=== PATIENT | female | born 1950 | race Caucasian/White ===

== ENCOUNTER 2016-08-24 21:21 | Inpatient (IN) | payer MEDICARE ==
[2016-08-24] MEDS ORDERED: Nicotine Inhaler* 10 MG AMP INH PRN (22:01)
[2016-08-24] MEDS ORDERED: Mouth Piece, Nicotine* 1 EACH CARTRIDGE INH ONE (23:00)
[2016-08-25] MEDS: Aspirin EC Low Dose* 81 MG TAB.EC PO SCH (09:16)
--- NOTE | 2016-08-25 13:36 | PN ---
Subjective - Subjective Service Type: 43255 Hosp care 15 min low complexity Subjective: Susan would not respond in any way to my request to speak with me, so I have no subjective report from her and no signs of mental status from behavior. Objective - Appearance Appearance: Healthy Appearing, Thin Framed Dysmorphic Features: No Hygiene: Normal Grooming: Fairly Well Kept - Behavior Psychomotor Activities: Abnormal-Decreased Exhibits Abnormal Movement: No - Attitude and Relatedness Attitude and Relatedness: Withdrawn Eye Contact: Poor - Speech Quality: Unpressured - as there is none - Mood Patient's Decription of Mood: wouldn't say - Affect Observed Affect: Unvariable Affect Consistent with: Dysphoria - Thought Process Patient's Thought Process: Impoverished - Level of Consciousness Level of Consciousness: Obtunded - or at least entirely nonresponsive - Impulse Control Impulse Control: Impaired - Insight and Judgement Insight and Judgement: Impaired - Group Participation Particating in Group Activities: No - Medication Management Medication Management Adherence: No Assessment - Assessment Merits Inpatient Hospitalization: For Immediate Safety, For Stabilization, Diagnosis Determination, To Initiate Treatment, For Ongoing Evaluation, For Discharge Planning, Pending Safe DC Plan Inpatient DSM-IV Dx: Other specified depressive and psychotic disorders. Clinical Impression: Ms. 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 We will be attempting to address again her episodes of catatonia. We will be attempting to elicit from her cooperation with gathering further information to ensure her safety prior to discharge. At the very least, we are hopeful that we will have sufficient observation on the unit of her functioning to indicate safety for discharge. Otherwise, we may need to consider long-term care to ensure her safety. As she is not even responding to request to be interviewed, much less signing HIPAA releases, we remain stymied in gathering either subjective report or collateral for determination of her safety for discharge. She will therefore remain admitted on 9.39 status pending adequate information for assessment as safe for discharge. Plan - Plan Treatment Plan: Name: SUSAN MEDRANO Birthdate: 1950 [id number] Gather collateral as soon as she permits. Monitor MS and safety. Offer ativan toward remission of catatonic presentation. Dispo per collateral and subjective report, would likely benefit from referral to mental health clinic, but unlikely to agree to this. Medications: Current Medications Aspirin (Aspirin Ec Low Dose*) 81 mg PO DAILY [facility] Last Admin: 08/25/16 09:16 Dose: Not Given Nicotine (Nicotine Inhaler*) 10 mg INH Q2H PRN PRN Reason: CRAVING - Discharge Plan Discharge Plan: Outpatient Follow Up
[2016-08-25] MEDS ORDERED: LORazepam TAB(*) 0.5 MG PO PRN (13:38)
[2016-08-26] MEDS: Aspirin EC Low Dose* 81 MG TAB.EC PO SCH (08:57)
--- NOTE | 2016-08-26 13:36 | PN ---
Progress Note - Progress Note Note: S: The patient is a 66 y.o. single white female just transferred to the [facility] from the medical unit following medical clearance for unresponsive, withdrawn behavior. Nursing staff indicates that she continues to just lay in her bed with her eyes closed and has taken no PO solids or fluids since arrival. On exam the patient is lying supine in bed and is essentially unresponsive to either verbal or tactile stimuli. O: The patient is short, clearly under-nourished female lying flat in bed with her eyes closed and refusing or unable to open them. She is mute and does not answer questions related to her mental status or any other subject. Vitals are stable in normal ranges. 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 Consider order for treatment from a laminator as she does not appear able to function and isn't speaking in order to make decisions for her own care.
[2016-08-27] MEDS: Aspirin EC Low Dose* 81 MG TAB.EC PO SCH (09:31)
--- NOTE | 2016-08-27 13:26 | PN ---
Subjective - Subjective Service Type: [id number] Hosp care 15 min low complexity Subjective: Patient has yet to eat anything since admission to our unit on 08/24. She has managed to sip small amounts of water and they did get her to accept one dose of 0.5mg ativan last evening. For the most part, however, she lies unresponsively, supine in her bed, seemingly unable to respond to either verbal or tactile stimuli. On exam she just lays in bed with her eyes closed, not appearing to hear me or feel my nudges on her foot. Objective - Appearance Appearance: Thin Framed Dysmorphic Features: No Hygiene: Normal Grooming: Fairly Well Kept - Behavior Psychomotor Activities: Abnormal-Decreased Exhibits Abnormal Movement: No - Attitude and Relatedness Attitude and Relatedness: Withdrawn Eye Contact: Poor - The patient is mute and cannot respond to questions regarding her mental status Assessment - Assessment Merits Inpatient Hospitalization: For Immediate Safety, For Stabilization Inpatient DSM-IV Dx: Other specified depressive and psychotic disorders. Clinical Impression: 66 y.o. single white female with a history of depression as well as catatonia and poor self care admitted as a transfer from medicine due to extreme withdrawal and inability to manage ADLs. Plan - Plan Treatment Plan: Name: KEMI MEDRANO Birthdate: 1950 [id number] Will schedule Ativan 2mg PO BID and see if this reverses the catatonia. Patient must eat and drink. Continued Medication Management: Consider Medication Medications: Current Medications Aspirin (Aspirin Ec Low Dose*) 81 mg PO DAILY [facility] Last Admin: 08/27/16 09:31 Dose: Not Given Lorazepam (Ativan Tab(*)) 0.5 mg PO Q4H PRN PRN Reason: ANXIETY Last Admin: 08/26/16 16:20 Dose: 0.5 mg Nicotine (Nicotine Inhaler*) 10 mg INH Q2H PRN PRN Reason: CRAVING - Discharge Plan Discharge Plan: Inpatient Hospitalization
[2016-08-27] MEDS: LORazepam INJ* 2 MG/ML 1 ML VIAL IM SCH ×2 (14:21→19:45)
[2016-08-28] MEDS: LORazepam INJ* 2 MG/ML 1 ML VIAL IM SCH ×3 (09:50→22:14)
[2016-08-28] MEDS: Aspirin EC Low Dose* 81 MG TAB.EC PO SCH (09:55)
--- NOTE | 2016-08-28 16:01 | PN ---
Subjective - Subjective Service Type: 36803 Hosp care 15 min low complexity Subjective: Ms. Campbell was in bed, her head covered and reported that she was tired. Answered questions briefly and covered her face again. Late was found walking in the dinning room. Says she ate her lunch which I doubted and per staff report they saw her in the dinning room drinking water. They were not sure she really ate. They will keep an eye on her during the dinner. Objective - Appearance Appearance: Thin Framed Dysmorphic Features: No Hygiene: Mal-odorous Grooming: Disheveled - Behavior Psychomotor Activities: Abnormal-Decreased Exhibits Abnormal Movement: No - Attitude and Relatedness Attitude and Relatedness: Minimally Cooperative Eye Contact: Poor - Speech Quality: Unpressured Latencies: Long Quantity: Terse - Mood Patient's Decription of Mood: "Fine" - Affect Observed Affect: Depressed - Thought Process Patient's Thought Process: Coherent, Impoverished Thought Content: No Passive Wish, No Suicidal Planning, No Homicidal Ideation, No Paranoid Ideation - Sensorium Experiencing Hallucinations: No, Sensorium is Clear Type of Hallucinations: Visual: No, Auditory: No, Command: No - Level of Consciousness Level of Consciousness: Alert Orientation: Yes Intact, Yes Orientated to Time, Yes Orientated to Place, Yes Orientated to Person - Impulse Control Impulse Control: Intact - Insight and Judgement Insight and Judgement: Impaired - Group Participation Particating in Group Activities: No - Medication Management Medication Management Adherence: No Assessment - Assessment Merits Inpatient Hospitalization: For Immediate Safety, For Stabilization, Diagnosis Determination, For Ongoing Evaluation, Pending Safe DC Plan Inpatient DSM-IV Dx: Other specified depressive and psychotic disorders. Plan - Plan Treatment Plan: Name: KEMI MEDRANO Birthdate: 1950 [id number] Continued Medication Management: Continue Outpt Medication Medications: Current Medications Aspirin (Aspirin Ec Low Dose*) 81 mg PO DAILY [facility] Last Admin: 08/28/16 09:55 Dose: Not Given Lorazepam (Ativan Tab(*)) 0.5 mg PO Q4H PRN PRN Reason: ANXIETY Last Admin: 08/26/16 16:20 Dose: 0.5 mg Lorazepam (Ativan Inj*) 2 mg IM BID [facility] Last Admin: 08/28/16 09:50 Dose: 2 mg Nicotine (Nicotine Inhaler*) 10 mg INH Q2H PRN PRN Reason: CRAVING - Discharge Plan Discharge Plan: Outpatient Follow Up Outpatient Program: TBD
[2016-08-29] MEDS: Aspirin EC Low Dose* 81 MG TAB.EC PO SCH (10:07)
[2016-08-29] MEDS: LORazepam INJ* 2 MG/ML 1 ML VIAL IM SCH ×2 (10:08→20:47)
--- NOTE | 2016-08-29 14:48 | PN ---
Subjective - Subjective Service Type: [id number] Hosp care 15 min low complexity Subjective: Susan reports feeling safe and ready for discharge, but still has not offered contact with any of the family or friends she claims she has been in touch with. She feels her rights are being violated by our needing to ascertain her safety prior to discharge, given the unsafe circumstances leading to her admission. Also says she thinks staff from this unit came up to the medical floor and removed her IV and monitoring equipment before they brought her here. She seems to feel she required continued medical care, despite being medically cleared for discharge. Objective - Appearance Appearance: Thin Framed Dysmorphic Features: No Hygiene: Normal Grooming: Fairly Well Kept - Behavior Psychomotor Activities: Normal Exhibits Abnormal Movement: No - Attitude and Relatedness Attitude and Relatedness: Guarded Eye Contact: Fair - Speech Quality: Unpressured Latencies: Normal Quantity: Appropriate - Mood Patient's Decription of Mood: "My mood is going to stand up for myself" - Affect Observed Affect: Tense Affect Consistent with: Dysphoria - Thought Process Patient's Thought Process: Goal Directed - toward discharge, Disorganized - as regards most other matters, Impoverished Thought Content: No Passive Wish, No Suicidal Planning, No Homicidal Ideation, No Paranoid Ideation - Sensorium Experiencing Hallucinations: No, Sensorium is Clear Type of Hallucinations: Visual: No, Auditory: No, Command: No - Level of Consciousness Level of Consciousness: Alert Orientation: Yes Intact, Yes Orientated to Time, Yes Orientated to Place, Yes Orientated to Person - Impulse Control Impulse Control: Tenuous - Insight and Judgement Insight and Judgement: Impaired - Group Participation Particating in Group Activities: No Group Participation Comments: only attending non-focused groups, eg recreational therapy - Medication Management Medication Management Adherence: No Assessment - Assessment Merits Inpatient Hospitalization: For Immediate Safety, For Stabilization, To Initiate Treatment, For Ongoing Evaluation, Consolidate Improvements, For Discharge Planning Inpatient DSM-IV Dx: Other specified depressive and psychotic disorders. Clinical Impression: Ms. 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 We will be attempting to address again her episodes of catatonia. We will be attempting to elicit from her cooperation with gathering further information to ensure her safety prior to discharge. At the very least, we are hopeful that we will have sufficient observation on the unit of her functioning to indicate safety for discharge. Otherwise, we may need to consider long-term care to ensure her safety. As she is not even responding to request to be interviewed, much less signing HIPAA releases, we remain stymied in gathering either subjective report or collateral for determination of her safety for discharge. She will therefore remain admitted on 9 status pending adequate information for assessment as safe for discharge. 1.3.17 Progress with talking with us now, but still a ways to go toward working collaboratively toward discharge. Have explained to her that we will need to speak with collateral contacts to determine her safety for discharge against isolation and poor care for self indicated by chaotic wellness check that led to this admission. Plan - Plan Treatment Plan: Name: SUSAN MEDRANO Birthdate: 1950 [id number] Gather collateral as soon as she permits. Monitor MS and safety. Encourage med compliance (won't even take baby aspirin). Dispo per collateral and subjective report, would likely benefit from referral to mental health clinic, but unlikely to agree to this. Medications: Current Medications Aspirin (Aspirin Ec Low Dose*) 81 mg PO DAILY [facility] Last Admin: 08/29/16 10:07 Dose: Not Given Lorazepam (Ativan Tab(*)) 0.5 mg PO Q4H PRN PRN Reason: ANXIETY Last Admin: 08/26/16 16:20 Dose: 0.5 mg Lorazepam (Ativan Inj*) 2 mg IM BID [facility] Last Admin: 08/29/16 10:08 Dose: Not Given Nicotine (Nicotine Inhaler*) 10 mg INH Q2H PRN PRN Reason: CRAVING - Discharge Plan Discharge Plan: Outpatient Follow Up
[2016-08-30] MEDS: LORazepam INJ* 2 MG/ML 1 ML VIAL IM SCH ×2 (08:53→22:46)
[2016-08-30] MEDS: Aspirin EC Low Dose* 81 MG TAB.EC PO SCH (10:33)
--- NOTE | 2016-08-30 16:13 | PN ---
Subjective - Subjective Service Type: [id number] Hosp care 15 min low complexity Subjective: Susan continues to refuse to speak with me. She has been marginally functional , taking some meals, but generally not engaging in care in any meaningful way. She will not permit gaining adequate collateral report to determine her safety if discharged. Objective - Appearance Appearance: Well Developed/Nourished Dysmorphic Features: No Hygiene: Normal Grooming: Well Kept - Behavior Psychomotor Activities: Abnormal-Decreased - often unresponsive Exhibits Abnormal Movement: No - Attitude and Relatedness Attitude and Relatedness: Withdrawn Eye Contact: Poor - Speech Quality: Unpressured Latencies: Short Quantity: Terse - Mood Patient's Decription of Mood: would not say - Affect Observed Affect: Non-labile Affect Consistent with: Dysphoria - Thought Process Patient's Thought Process: Disorganized, Impoverished - Level of Consciousness Level of Consciousness: Obtunded - Impulse Control Impulse Control: Tenuous - Insight and Judgement Insight and Judgement: Impaired - Group Participation Particating in Group Activities: No - Medication Management Medication Management Adherence: No Assessment - Assessment Merits Inpatient Hospitalization: For Immediate Safety, For Stabilization, Diagnosis Determination, To Initiate Treatment, For Ongoing Evaluation, For Discharge Planning, Pending Safe DC Plan Inpatient DSM-IV Dx: Other specified depressive and psychotic disorders. Clinical Impression: Ms. 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 We will be attempting to address again her episodes of catatonia. We will be attempting to elicit from her cooperation with gathering further information to ensure her safety prior to discharge. At the very least, we are hopeful that we will have sufficient observation on the unit of her functioning to indicate safety for discharge. Otherwise, we may need to consider long-term care to ensure her safety. As she is not even responding to request to be interviewed, much less signing HIPAA releases, we remain stymied in gathering either subjective report or collateral for determination of her safety for discharge. She will therefore remain admitted on status pending adequate information for assessment as safe for discharge. 1.3.17 Progress with talking with us now, but still a ways to go toward working collaboratively toward discharge. Have explained to her that we will need to speak with collateral contacts to determine her safety for discharge against isolation and poor care for self indicated by chaotic wellness check that led to this admission. 1.4.17 Continues to refuse to engage in interview sufficiently to make safety assessment. Refusing meds, groups. Plan - Plan Treatment Plan: Name: SUSAN MEDRANO Birthdate: 1950 [id number] Gather collateral as soon as she permits. Monitor MS and safety. Encourage med compliance (won't even take baby aspirin). Dispo per collateral and subjective report, would likely benefit from referral to mental health clinic, but unlikely to agree to this. Filing for Treatment Over Objection, she has filed legal challenge to this admission. Continued care necessary to reduce high risk of imminent serious physical harm from inadequate self-care. Medications: Current Medications Aspirin (Aspirin Ec Low Dose*) 81 mg PO DAILY [facility] Last Admin: 08/30/16 10:33 Dose: Not Given Lorazepam (Ativan Tab(*)) 0.5 mg PO Q4H PRN PRN Reason: ANXIETY Last Admin: 08/26/16 16:20 Dose: 0.5 mg Lorazepam (Ativan Inj*) 2 mg IM BID [facility] Last Admin: 08/30/16 08:53 Dose: 2 mg Nicotine (Nicotine Inhaler*) 10 mg INH Q2H PRN PRN Reason: CRAVING - Discharge Plan Discharge Plan: Consider Longer Term Tx
[2016-08-31] MEDS: Aspirin EC Low Dose* 81 MG TAB.EC PO SCH (09:10)
[2016-08-31] MEDS: LORazepam INJ* 2 MG/ML 1 ML VIAL IM SCH ×2 (09:10→20:53)
[2016-08-31] MEDS: FLUoxetine CAP* 10 MG PO SCH (10:11)
[2016-08-31] MEDS: OLANzapine TAB*ODT* 10 MG TAB PO SCH (20:53)
[2016-09-01] MEDS: FLUoxetine CAP* 10 MG PO SCH (13:27)
[2016-09-01] MEDS: Aspirin EC Low Dose* 81 MG TAB.EC PO SCH (13:27)
[2016-09-01] MEDS: LORazepam INJ* 2 MG/ML 1 ML VIAL IM SCH ×2 (13:27→21:06)
[2016-09-01] MEDS ORDERED: LORazepam INJ* 2 MG/ML 1 ML VIAL IM SCH (14:14)
--- NOTE | 2016-09-01 16:13 | PN ---
Subjective - Subjective Service Type: [id number] Hosp care 15 min low complexity Subjective: Unresponsive to me today when I approached her around 3 pm. Objective - Appearance Appearance: Thin Framed Dysmorphic Features: No Hygiene: Normal Grooming: Disheveled - Behavior Psychomotor Activities: Abnormal-Decreased - if not catatonic Exhibits Abnormal Movement: No - Attitude and Relatedness Attitude and Relatedness: Withdrawn Eye Contact: Poor - in fact absent - Speech Quality: Unpressured - in fact none - Mood Patient's Decription of Mood: will not rouse to report - Affect Observed Affect: Unvariable - Thought Process Patient's Thought Process: Impoverished - Level of Consciousness Level of Consciousness: Obtunded - Insight and Judgement Insight and Judgement: Impaired - Group Participation Particating in Group Activities: No - Medication Management Medication Management Adherence: No Assessment - Assessment Merits Inpatient Hospitalization: For Immediate Safety, For Stabilization, To Initiate Treatment, For Ongoing Evaluation, For Discharge Planning, Pending Safe DC Plan Inpatient DSM-IV Dx: Other specified depressive and psychotic disorders. Clinical Impression: Ms. 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 We will be attempting to address again her episodes of catatonia. We will be attempting to elicit from her cooperation with gathering further information to ensure her safety prior to discharge. At the very least, we are hopeful that we will have sufficient observation on the unit of her functioning to indicate safety for discharge. Otherwise, we may need to consider long-term care to ensure her safety. As she is not even responding to request to be interviewed, much less signing HIPAA releases, we remain stymied in gathering either subjective report or collateral for determination of her safety for discharge. She will therefore remain admitted on status pending adequate information for assessment as safe for discharge. 1.3.17 Progress with talking with us now, but still a ways to go toward working collaboratively toward discharge. Have explained to her that we will need to speak with collateral contacts to determine her safety for discharge against isolation and poor care for self indicated by chaotic wellness check that led to this admission. ..17 Continues to refuse to engage in interview sufficiently to make safety assessment. Refusing meds, groups. ..17 Still refusing to permit contact with collateral, engage in useful discussion of circumstances leading to hospitalization or plan for discharge. Often entirely unresponsive, and so she was today as I tried to rouse her from bed for an interview. Plan - Plan Treatment Plan: Name: KEMI MEDRANO Birthdate: 1950 [id number] Gather collateral as soon as she permits. Monitor MS and safety. Encourage med compliance (won't even take baby aspirin). Dispo per collateral and subjective report, would likely benefit from referral to mental health clinic, but unlikely to agree to this. Filing for Treatment Over Objection, she has filed legal challenge to this admission. Continued care necessary to reduce high risk of imminent serious physical harm from inadequate self-care. Medications: Current Medications Aspirin (Aspirin Ec Low Dose*) 81 mg PO DAILY [facility] Last Admin: 09/01/16 13:27 Dose: Not Given Fluoxetine HCl (Prozac Cap*) 10 mg PO DAILY [facility] Last Admin: 09/01/16 13:27 Dose: Not Given Lorazepam (Ativan Tab(*)) 0.5 mg PO Q4H PRN PRN Reason: ANXIETY Last Admin: 08/26/16 16:20 Dose: 0.5 mg Lorazepam (Ativan Inj*) 2 mg IM BID [facility] Nicotine (Nicotine Inhaler*) 10 mg INH Q2H PRN PRN Reason: CRAVING Olanzapine (Zyprexa *Odt*) 10 mg PO BEDTIME [facility] Last Admin: 08/31/16 20:53 Dose: Not Given - Discharge Plan Discharge Plan: Outpatient Follow Up
[2016-09-01] MEDS: OLANzapine TAB*ODT* 10 MG TAB PO SCH (21:08)
[2016-09-02] MEDS: Aspirin EC Low Dose* 81 MG TAB.EC PO SCH (09:48)
[2016-09-02] MEDS: FLUoxetine CAP* 10 MG PO SCH (09:48)
[2016-09-02] MEDS: LORazepam INJ* 2 MG/ML 1 ML VIAL IM SCH ×2 (10:18→22:36)
[2016-09-02] MEDS: OLANzapine TAB*ODT* 10 MG TAB PO SCH (22:27)
[2016-09-03] MEDS: Aspirin EC Low Dose* 81 MG TAB.EC PO SCH (09:46)
[2016-09-03] MEDS: FLUoxetine CAP* 10 MG PO SCH (09:46)
[2016-09-03] MEDS: LORazepam INJ* 2 MG/ML 1 ML VIAL IM SCH ×2 (10:12→21:53)
[2016-09-03] MEDS: OLANzapine TAB*ODT* 10 MG TAB PO SCH (21:52)
[2016-09-04] MEDS: LORazepam INJ* 2 MG/ML 1 ML VIAL IM SCH ×2 (09:50→21:09)
[2016-09-04] MEDS: Aspirin EC Low Dose* 81 MG TAB.EC PO SCH (10:59)
[2016-09-04] MEDS: FLUoxetine CAP* 10 MG PO SCH (10:59)
--- NOTE | 2016-09-04 13:37 | PN ---
Subjective - Subjective Service Type: 64947 Hosp care 15 min low complexity Subjective: Again today Susan did not respond to my request for an interview, instead continued to lay supine on her bed. Objective - Appearance Appearance: Thin Framed Dysmorphic Features: No Hygiene: Normal Grooming: Fairly Well Kept - Behavior Psychomotor Activities: Abnormal-Decreased Exhibits Abnormal Movement: No - Attitude and Relatedness Attitude and Relatedness: Withdrawn Eye Contact: Poor - Speech Quality: Unpressured - Thought Process Patient's Thought Process: Disorganized - Insight and Judgement Insight and Judgement: Impaired - Group Participation Particating in Group Activities: Yes Group Participation Comments: but only a few, and not the more focused groups - Medication Management Medication Management Adherence: Partial Assessment - Assessment Merits Inpatient Hospitalization: For Immediate Safety, For Stabilization, To Initiate Treatment, For Ongoing Evaluation, For Discharge Planning, Pending Safe DC Plan Inpatient DSM-IV Dx: Other specified depressive and psychotic disorders. Clinical Impression: Ms. Medrano is a 66-year-old woman with a history of depression and catatonic presentations previously, who again on this occasion had been nonresponsive on a wellness check from the lay out maker's department and so came into the hospital, remained nonresponsive for the first 24 hours here and is still not offering information adequate to ascertain her safety, so we will admit her to the [address] [place] [address] [facility] for further assessment. We will be attempting to address again her episodes of catatonia. We will be attempting to elicit from her cooperation with gathering further information to ensure her safety prior to discharge. At the very least, we are hopeful that we will have sufficient observation on the unit of her functioning to indicate safety for discharge. Otherwise, we may need to consider long-term care to ensure her safety. As she is not even responding to request to be interviewed, much less signing HIPAA releases, we remain stymied in gathering either subjective report or collateral for determination of her safety for discharge. She will therefore remain admitted on 939 status pending adequate information for assessment as safe for discharge. 1.3.17 Progress with talking with us now, but still a ways to go toward working collaboratively toward discharge. Have explained to her that we will need to speak with collateral contacts to determine her safety for discharge against isolation and poor care for self indicated by chaotic wellness check that led to this admission. 1.4.17 Continues to refuse to engage in interview sufficiently to make safety assessment. Refusing meds, groups. 09.01.16 Still refusing to permit contact with collateral, engage in useful discussion of circumstances leading to hospitalization or plan for discharge. Often entirely unresponsive, and so she was today as I tried to rouse her from bed for an interview. 09.04.16 Again today, entirely unresponsive, so not allowing full assessment nor any form of collaboration toward safe discharge. Plan - Plan Treatment Plan: Name: SUSAN MEDRANO Birthdate: 1950 [id number] Gather collateral as soon as she permits. Monitor MS and safety. Encourage med compliance (now taking baby aspirin and fluoxetine, but refusing Zyprexa). Dispo per collateral and subjective report, would likely benefit from referral to mental health clinic, but unlikely to agree to this. Filing for Treatment Over Objection, she has filed legal challenge to this admission. Continued care necessary to reduce high risk of imminent serious physical harm from inadequate self-care. Medications: Current Medications Aspirin (Aspirin Ec Low Dose*) 81 mg PO DAILY [facility] Last Admin: 09/04/16 10:59 Dose: Not Given Fluoxetine HCl (Prozac Cap*) 10 mg PO DAILY [facility] Last Admin: 09/04/16 10:59 Dose: Not Given Lorazepam (Ativan Tab(*)) 0.5 mg PO Q4H PRN PRN Reason: ANXIETY Last Admin: 08/26/16 16:20 Dose: 0.5 mg Lorazepam (Ativan Inj*) 2 mg IM BID [facility] Last Admin: 09/04/16 09:50 Dose: 2 mg Nicotine (Nicotine Inhaler*) 10 mg INH Q2H PRN PRN Reason: CRAVING Olanzapine (Zyprexa *Odt*) 10 mg PO BEDTIME [facility] Last Admin: 09/03/16 21:52 Dose: Not Given - Discharge Plan Discharge Plan: Outpatient Follow Up
[2016-09-04] MEDS: OLANzapine TAB*ODT* 10 MG TAB PO SCH (21:09)
[2016-09-05] MEDS: Aspirin EC Low Dose* 81 MG TAB.EC PO SCH (09:17)
[2016-09-05] MEDS: FLUoxetine CAP* 10 MG PO SCH (09:17)
[2016-09-05] MEDS: LORazepam INJ* 2 MG/ML 1 ML VIAL IM SCH ×2 (10:45→20:19)
--- NOTE | 2016-09-05 13:47 | PN ---
MHU: Group Therapy Note - Service Type Service Type: [id number] Group Psychotherapy - Cognitive Behavioral Group Therapy ( CBT):Patient attended CBT programming this morning and presented with flat affect that did not vary with discussion. Although responsive to direct prompts to respond to questions, patient did not engage in spontaneous conversation.
[2016-09-05] MEDS: OLANzapine TAB*ODT* 10 MG TAB PO SCH (20:17)
[2016-09-06] MEDS: Aspirin EC Low Dose* 81 MG TAB.EC PO SCH (09:31)
[2016-09-06] MEDS: FLUoxetine CAP* 10 MG PO SCH (09:31)
[2016-09-06] MEDS: LORazepam INJ* 2 MG/ML 1 ML VIAL IM SCH ×2 (09:31→21:15)
--- NOTE | 2016-09-06 11:51 | PN ---
MHU: Group Therapy Note - Service Type Service Type: 02807 Group Psychotherapy - Cognitive Behavioral Group Therapy ( CBT):Patient was attentive and participatory in CBT programming this morning, and remained in good behavioral control. Patient expressed positive insights regarding relevant treatment interventions and goals.
--- NOTE | 2016-09-06 17:51 | PN ---
Subjective - Subjective Service Type: 96002 Hosp care 15 min low complexity Subjective: Spent 2 hours today with Susan in court. She was astonishingly lucid and verbal there as compared with behavior here. Senior Manufacturing Engineer recommended to her to allow us to gather collateral to assure her safety at discharge, not sure if she agreed to do this. T.O.O. was granted. Objective - Appearance Appearance: Thin Framed Dysmorphic Features: No Hygiene: Normal Grooming: Fairly Well Kept - Behavior Psychomotor Activities: Normal Exhibits Abnormal Movement: No - Attitude and Relatedness Attitude and Relatedness: Guarded Eye Contact: Fair - Speech Quality: Unpressured Latencies: Normal Quantity: Terse - Mood Patient's Decription of Mood: "Good" - Affect Observed Affect: Fair Affect Consistent with: Euthymia - Thought Process Patient's Thought Process: Coherent, Goal Directed Thought Content: No Passive Wish, No Suicidal Planning, No Homicidal Ideation, No Paranoid Ideation - Sensorium Experiencing Hallucinations: No, Sensorium is Clear Type of Hallucinations: Visual: No, Auditory: No, Command: No - Level of Consciousness Level of Consciousness: Alert Orientation: Yes Intact, Yes Orientated to Time, Yes Orientated to Place, Yes Orientated to Person - Impulse Control Impulse Control: Intact - Insight and Judgement Insight and Judgement: Poor - Group Participation Particating in Group Activities: Yes Group Participation Comments: some - Medication Management Medication Management Adherence: Yes Assessment - Assessment Merits Inpatient Hospitalization: For Stabilization, To Initiate Treatment, For Ongoing Evaluation, For Discharge Planning, Pending Safe DC Plan Inpatient DSM-IV Dx: Other specified depressive and psychotic disorders. Clinical Impression: Ms. Medrano is a 66-year-old woman with a history of depression and catatonic presentations previously, who again on this occasion had been nonresponsive on a wellness check from the convex grinder operator's department and so came into the hospital, remained nonresponsive for the first 24 hours here and is still not offering information adequate to ascertain her safety, so we will admit her to the [address] [place] [address] [facility] for further assessment. We will be attempting to address again her episodes of catatonia. We will be attempting to elicit from her cooperation with gathering further information to ensure her safety prior to discharge. At the very least, we are hopeful that we will have sufficient observation on the unit of her functioning to indicate safety for discharge. Otherwise, we may need to consider long-term care to ensure her safety. As she is not even responding to request to be interviewed, much less signing HIPAA releases, we remain stymied in gathering either subjective report or collateral for determination of her safety for discharge. She will therefore remain admitted on 39 status pending adequate information for assessment as safe for discharge. 1.3.17 Progress with talking with us now, but still a ways to go toward working collaboratively toward discharge. Have explained to her that we will need to speak with collateral contacts to determine her safety for discharge against isolation and poor care for self indicated by chaotic wellness check that led to this admission. 1.4.17 Continues to refuse to engage in interview sufficiently to make safety assessment. Refusing meds, groups. 1.6.17 Still refusing to permit contact with collateral, engage in useful discussion of circumstances leading to hospitalization or plan for discharge. Often entirely unresponsive, and so she was today as I tried to rouse her from bed for an interview. 19.17 Again today, entirely unresponsive, so not allowing full assessment nor any form of collaboration toward safe discharge. 09.06.17 T.O.O. granted, challenge to 9.39 not granted. Remarkably lucid in court. Will start treatment tomorrow. Plan - Plan Treatment Plan: Name: SUSAN MEDRANO Birthdate: 1950 [id number] Gather collateral as soon as she permits. Monitor MS and safety. Encourage med compliance (refused all today). Dispo per collateral and subjective report , would likely benefit from referral to mental health clinic, but unlikely to agree to this. Treatment Over Objection and legal challenge to this admission decided in favor of [facility]. Continued care necessary to reduce high risk of imminent serious physical harm from inadequate self-care. Discharge will be when we can confirm safety. Continued Medication Management: Different Medication Medications: Current Medications Aspirin (Aspirin Ec Low Dose*) 81 mg PO DAILY [facility] Last Admin: 09/06/16 09:31 Dose: Not Given Fluoxetine HCl (Prozac Cap*) 10 mg PO DAILY [facility] Last Admin: 09/06/16 09:31 Dose: Not Given Lorazepam (Ativan Tab(*)) 0.5 mg PO Q4H PRN PRN Reason: ANXIETY Last Admin: 08/26/16 16:20 Dose: 0.5 mg Lorazepam (Ativan Inj*) 2 mg IM BID [facility] Last Admin: 09/06/16 09:31 Dose: Not Given Nicotine (Nicotine Inhaler*) 10 mg INH Q2H PRN PRN Reason: CRAVING Olanzapine (Zyprexa *Odt*) 10 mg PO BEDTIME [facility] Last Admin: 09/05/16 20:17 Dose: Not Given - Discharge Plan Discharge Plan: Outpatient Follow Up Outpatient Program: [facility]
[2016-09-06] MEDS: OLANzapine TAB*ODT* 10 MG TAB PO SCH (21:17)
[2016-09-07] MEDS: Aspirin EC Low Dose* 81 MG TAB.EC PO SCH (09:39)
[2016-09-07] MEDS: FLUoxetine CAP* 10 MG PO SCH (09:39)
[2016-09-07] MEDS: LORazepam INJ* 2 MG/ML 1 ML VIAL IM SCH (10:00)
--- NOTE | 2016-09-07 10:25 | PN ---
Subjective - Subjective Service Type: 09364 Hosp care 15 min low complexity Subjective: Today, for the first time, Susan sat with me and had a cogent conversation about medications. She reports no ill effects from Zyprexa, and agrees to take it, Prozac and Ativan. She has no physical complaints. She does want to treat her illness with acupuncture and [place]ik herbal medications, but did not object to my advice to clear this with her outpatient psychiatrist once she begins working with one. She reports good mood and no active psychiatric symptoms. She confirmed to me that what she said in court about her episodes of unresponsiveness is true, that they are involuntary. She agrees that this could lead to dangerous situations. I did not ask her today why the big change in attitude, but I am curious about it, and suspect it has to do with a therapeutic effect of formal court confrontation with the truths of her situation. Objective - Appearance Appearance: Thin Framed Dysmorphic Features: No Hygiene: Normal Grooming: Well Kept - Behavior Psychomotor Activities: Normal Exhibits Abnormal Movement: No - Attitude and Relatedness Attitude and Relatedness: Cooperative Eye Contact: Good - Speech Quality: Unpressured Latencies: Normal Quantity: Appropriate - Mood Patient's Decription of Mood: "Good" - Affect Observed Affect: Fair Affect Consistent with: Euthymia - Thought Process Patient's Thought Process: Coherent, Goal Directed Thought Content: No Passive Wish, No Suicidal Planning, No Homicidal Ideation, No Paranoid Ideation - Sensorium Experiencing Hallucinations: No, Sensorium is Clear Type of Hallucinations: Visual: No, Auditory: No, Command: No - Level of Consciousness Level of Consciousness: Alert Orientation: Yes Intact, Yes Orientated to Time, Yes Orientated to Place, Yes Orientated to Person - Impulse Control Impulse Control: Intact - Insight and Judgement Insight and Judgement: Fair - Group Participation Particating in Group Activities: No - Medication Management Medication Management Adherence: Partial Assessment - Assessment Merits Inpatient Hospitalization: For Stabilization, To Initiate Treatment, For Ongoing Evaluation, For Discharge Planning, Pending Safe DC Plan Inpatient DSM-IV Dx: Other specified depressive and psychotic disorders. Clinical Impression: Ms. Medrano is a 66-year-old woman with a history of depression and catatonic presentations previously, who again on this occasion had been nonresponsive on a wellness check from the anthropological linguist's department and so came into the hospital, remained nonresponsive for the first 24 hours here and is still not offering information adequate to ascertain her safety, so we will admit her to the [address] [place] [address] [facility] for further assessment. We will be attempting to address again her episodes of catatonia. We will be attempting to elicit from her cooperation with gathering further information to ensure her safety prior to discharge. At the very least, we are hopeful that we will have sufficient observation on the unit of her functioning to indicate safety for discharge. Otherwise, we may need to consider long-term care to ensure her safety. As she is not even responding to request to be interviewed, much less signing HIPAA releases, we remain stymied in gathering either subjective report or collateral for determination of her safety for discharge. She will therefore remain admitted on status pending adequate information for assessment as safe for discharge. 1.3.17 Progress with talking with us now, but still a ways to go toward working collaboratively toward discharge. Have explained to her that we will need to speak with collateral contacts to determine her safety for discharge against isolation and poor care for self indicated by chaotic wellness check that led to this admission. 1.4.17 Continues to refuse to engage in interview sufficiently to make safety assessment. Refusing meds, groups. 1.6.17 Still refusing to permit contact with collateral, engage in useful discussion of circumstances leading to hospitalization or plan for discharge. Often entirely unresponsive, and so she was today as I tried to rouse her from bed for an interview. 17 Again today, entirely unresponsive, so not allowing full assessment nor any form of collaboration toward safe discharge. 09.06.17 T.O.O. granted, challenge to not granted. Remarkably lucid in court. Will start treatment tomorrow. 09.07.17 Today Susan is cooperative and collaborative and pleasant. She is med compliant with no complaints of side effects, the potentials for which we have reviewed, and she has agreed to take the PO meds that are ordered with knowledge and acceptance of potential side effects seeing likely benefits as outweighing risks. She has asked for Staff Pass and q30 checks and comfort room privileges. Added 40 mg atorvastatin after reviewing follow-up recommendations from medical admission with Bakari Denis: this had not been a d/ c med in Dr Freire's d/c summary, but Marzulla assessed her as needing this for her cardiac risk and lipid profile on review of the case with me today. Plan - Plan Treatment Plan: Name: SUSAN MEDRANO Birthdate: 1950 [id number] Gather collateral as soon as she permits. Monitor MS and safety. Encourage med compliance under T.O.O. (took all today). Dispo per collateral and subjective report, would likely benefit from referral to mental health clinic, has now tacitly agreed to this, will benefit from firming commitment during remaining inpatient stay. Continued care necessary to reduce high risk of imminent serious physical harm from inadequate self-care, but if current trends continue may be safe for discharge in a week or so. Discharge will be when we can confirm safety through sustained remission of catatonia, stable euthymic mood, organized thought and behavior, and commitment to adequate aftercare plan. Medications: Current Medications Aspirin (Aspirin Ec Low Dose*) 81 mg PO DAILY [facility] Last Admin: 09/07/16 09:39 Dose: 81 mg Fluoxetine HCl (Prozac Cap*) 10 mg PO DAILY [facility] Last Admin: 09/07/16 09:39 Dose: 10 mg Lorazepam (Ativan Tab(*)) 0.5 mg PO Q4H PRN PRN Reason: ANXIETY Last Admin: 08/26/16 16:20 Dose: 0.5 mg Lorazepam (Ativan Inj*) 2 mg IM BID [facility] Last Admin: 09/07/16 10:00 Dose: Not Given Nicotine (Nicotine Inhaler*) 10 mg INH Q2H PRN PRN Reason: CRAVING Olanzapine (Zyprexa *Odt*) 10 mg PO BEDTIME [facility] Last Admin: 09/06/16 21:17 Dose: 10 mg - Discharge Plan Discharge Plan: Outpatient Follow Up Outpatient Program: [facility]
[2016-09-07] MEDS ORDERED: LORazepam INJ* 2 MG/ML 1 ML VIAL IM PRN (10:29)
--- NOTE | 2016-09-07 11:55 | PN ---
MHU: Group Therapy Note - Service Type Service Type: [id number] Group Psychotherapy - Cognitive Behavioral Group Therapy ( CBT):Patient was attentive and participatory in CBT programming this morning, and remained in good behavioral control. Patient expressed positive insights regarding relevant treatment interventions and goals.
[2016-09-07] MEDS: Atorvastatin* 40 MG TAB PO SCH (20:34)
[2016-09-07] MEDS: LORazepam TAB(*) 0.5 MG PO SCH (20:34)
[2016-09-07] MEDS: OLANzapine TAB*ODT* 10 MG TAB PO SCH (20:34)
[2016-09-08] MEDS: FLUoxetine CAP* 10 MG PO SCH (09:21)
[2016-09-08] MEDS: Aspirin EC Low Dose* 81 MG TAB.EC PO SCH (09:21)
[2016-09-08] MEDS: LORazepam TAB(*) 0.5 MG PO SCH ×2 (09:21→20:47)
--- NOTE | 2016-09-08 16:04 | PN ---
Subjective - Subjective Service Type: 65952 Hosp care 15 min low complexity Subjective: Susan had no spontaneous comments but reported feeling better. Attributed it to the medication, which she said "is helping." Denied problems here but is eager to go home. Said she feels she is getting good care, even thought the process, and court, has been difficult. Objective - Appearance Appearance: Thin Framed Grooming: Fairly Well Kept - Behavior Psychomotor Activities: Abnormal-Decreased - Attitude and Relatedness Attitude and Relatedness: Superficially Cooperative Eye Contact: Good - Speech Quality: Unpressured Latencies: Normal Quantity: Terse - Mood Patient's Decription of Mood: "Okay" - Affect Observed Affect: Non-labile Affect Consistent with: Dysphoria - mild - Thought Process Patient's Thought Process: Coherent, Impoverished Thought Content: No Passive Wish, No Suicidal Planning, No Homicidal Ideation, No Paranoid Ideation - Sensorium Experiencing Hallucinations: No, Sensorium is Clear - Level of Consciousness Level of Consciousness: Alert - Impulse Control Impulse Control: Intact - Insight and Judgement Insight and Judgement: Fair Assessment - Assessment Merits Inpatient Hospitalization: To Initiate Treatment, For Ongoing Evaluation , Consolidate Improvements, For Discharge Planning Inpatient DSM-IV Dx: Other specified depressive and psychotic disorders. Clinical Impression: 66-year-old female with a history of depression and catatonia. She was transferred to psychiatry from the medical service, after being found with catatonia. She is stable in this setting, with improvement - is less overtly depressed and slowed down, brighter. Complication was her medication refusal, she is now under court order for medicines. Regimen is with Zyprexa, Prozac, Ativan. Given progress and ongoing symptoms, expect d/c next week. Plan - Plan Treatment Plan: Name: SUSAN MEDRANO Birthdate: 1950 [id number] Continued Medication Management: Start Medication Medications: Current Medications Aspirin (Aspirin Ec Low Dose*) 81 mg PO DAILY [facility] Last Admin: 09/08/16 09:21 Dose: 81 mg Atorvastatin Calcium (Lipitor*) 40 mg PO 2100 [facility] Last Admin: 09/07/16 20:34 Dose: 40 mg Fluoxetine HCl (Prozac Cap*) 10 mg PO DAILY [facility] Last Admin: 09/08/16 09:21 Dose: 10 mg Lorazepam (Ativan Tab(*)) 0.5 mg PO BID [facility] Last Admin: 09/08/16 09:21 Dose: 0.5 mg Lorazepam (Ativan Inj*) 2 mg IM BID PRN PRN Reason: catatonia Olanzapine (Zyprexa *Odt*) 10 mg PO BEDTIME [facility] Last Admin: 09/07/16 20:34 Dose: 10 mg - Discharge Plan Discharge Plan: Outpatient Follow Up
[2016-09-08] MEDS: Atorvastatin* 40 MG TAB PO SCH (20:47)
[2016-09-08] MEDS: OLANzapine TAB*ODT* 10 MG TAB PO SCH (20:47)
[2016-09-09] MEDS: LORazepam TAB(*) 0.5 MG PO SCH ×2 (09:36→20:09)
[2016-09-09] MEDS: Aspirin EC Low Dose* 81 MG TAB.EC PO SCH (09:36)
[2016-09-09] MEDS: FLUoxetine CAP* 10 MG PO SCH (09:36)
[2016-09-09] MEDS: Atorvastatin* 40 MG TAB PO SCH (20:08)
[2016-09-09] MEDS: OLANzapine TAB*ODT* 10 MG TAB PO SCH (20:10)
[2016-09-10] MEDS: LORazepam TAB(*) 0.5 MG PO SCH ×2 (08:57→20:07)
[2016-09-10] MEDS: Aspirin EC Low Dose* 81 MG TAB.EC PO SCH (08:57)
[2016-09-10] MEDS: FLUoxetine CAP* 10 MG PO SCH (08:57)
[2016-09-10] MEDS: Atorvastatin* 40 MG TAB PO SCH (20:07)
[2016-09-10] MEDS: OLANzapine TAB*ODT* 10 MG TAB PO SCH (20:07)
[2016-09-11] MEDS: LORazepam TAB(*) 0.5 MG PO SCH ×2 (08:27→19:38)
[2016-09-11] MEDS: Aspirin EC Low Dose* 81 MG TAB.EC PO SCH (08:27)
[2016-09-11] MEDS: FLUoxetine CAP* 10 MG PO SCH (08:27)
--- NOTE | 2016-09-11 08:47 | PN ---
Subjective - Subjective Service Type: 36805 Hosp care 15 min low complexity Subjective: Susan reported "doing fine," and said her mood was "good." She denied distress, conflicts, or side effects with medicines. She agrees she has made progress. Objective - Appearance Appearance: Thin Framed Hygiene: Normal Grooming: Well Kept - Behavior Psychomotor Activities: Normal - Attitude and Relatedness Attitude and Relatedness: Cooperative Eye Contact: Good - Speech Quality: Unpressured Latencies: Normal Quantity: Terse - Mood Patient's Decription of Mood: "Fine" - Affect Observed Affect: Constricted Affect Consistent with: Euthymia - Thought Process Patient's Thought Process: Impoverished Thought Content: No Passive Wish, No Suicidal Planning, No Homicidal Ideation, No Paranoid Ideation - Sensorium Experiencing Hallucinations: No, Sensorium is Clear - Level of Consciousness Level of Consciousness: Alert - Impulse Control Impulse Control: Intact - Insight and Judgement Insight and Judgement: Fair Assessment - Assessment Merits Inpatient Hospitalization: To Initiate Treatment, For Ongoing Evaluation , Consolidate Improvements Inpatient DSM-IV Dx: Other specified depressive and psychotic disorders. Clinical Impression: 66-year-old female with a history of depression and catatonia. She was transferred to psychiatry from the medical service, after being found with catatonia. She is stable in this setting, with ongoing improvement - is less overtly depressed or slowed down, and relatively brighter and more interactive. Complication was her medication refusal, she is now under court order for medicines. Regimen is with Zyprexa, Prozac, Ativan. Given progress and ongoing symptoms, expect d/c later this week. Plan - Plan Treatment Plan: Name: SUSAN MEDRANO Birthdate: 1950 [id number] Continued Medication Management: Start Medication Medications: Current Medications Aspirin (Aspirin Ec Low Dose*) 81 mg PO DAILY [facility] Last Admin: 09/11/16 08:27 Dose: 81 mg Atorvastatin Calcium (Lipitor*) 40 mg PO 2100 [facility] Last Admin: 09/10/16 20:07 Dose: 40 mg Fluoxetine HCl (Prozac Cap*) 10 mg PO DAILY [facility] Last Admin: 09/11/16 08:27 Dose: 10 mg Lorazepam (Ativan Tab(*)) 0.5 mg PO BID [facility] Last Admin: 09/11/16 08:27 Dose: 0.5 mg Lorazepam (Ativan Inj*) 2 mg IM BID PRN PRN Reason: catatonia Olanzapine (Zyprexa *Odt*) 10 mg PO BEDTIME [facility] Last Admin: 09/10/16 20:07 Dose: 10 mg - Discharge Plan Discharge Plan: Outpatient Follow Up
--- NOTE | 2016-09-11 11:13 | PN ---
MHU: Group Therapy Note - Service Type Service Type: 32448 Group Psychotherapy - Cognitive Behavioral Group Therapy ( CBT):Patient attended CBT programming this morning and presented with flat affect that did not vary with discussion. Although responsive to direct prompts to respond to questions, patient did not engage in spontaneous conversation.
[2016-09-11] MEDS: OLANzapine TAB*ODT* 10 MG TAB PO SCH (19:37)
[2016-09-11] MEDS: Atorvastatin* 40 MG TAB PO SCH (19:39)
[2016-09-12] MEDS: Aspirin EC Low Dose* 81 MG TAB.EC PO SCH (08:31)
[2016-09-12] MEDS: FLUoxetine CAP* 10 MG PO SCH (08:31)
[2016-09-12] MEDS: LORazepam TAB(*) 0.5 MG PO SCH ×2 (08:32→19:53)
--- NOTE | 2016-09-12 11:27 | PN ---
MHU: Group Therapy Note - Service Type Service Type: 05362 Group Psychotherapy - Cognitive Behavioral Group Therapy ( CBT):Patient attended CBT programming this morning and presented with flat affect that did not vary with discussion. Although responsive to direct prompts to respond to questions, patient did not engage in spontaneous conversation.
[2016-09-12] MEDS: OLANzapine TAB*ODT* 10 MG TAB PO SCH (19:53)
[2016-09-13] MEDS: Atorvastatin* 40 MG TAB PO SCH ×2 (02:39→20:28)
[2016-09-13] MEDS: Aspirin EC Low Dose* 81 MG TAB.EC PO SCH (08:30)
[2016-09-13] MEDS: FLUoxetine CAP* 10 MG PO SCH (08:30)
[2016-09-13] MEDS: LORazepam TAB(*) 0.5 MG PO SCH ×2 (08:30→20:28)
--- NOTE | 2016-09-13 12:45 | PN ---
Subjective - Subjective Service Type: 29493 Hosp care 25 min moderate complexity Subjective: Susan reports good mood with no psychosis and no dangerous intent or plan. She reports that a friend just left for [place] on a train without a cellphone, so would not be available for collateral. She agrees to think about other possible people for us to call for collateral and to talk with Alondra about whom she thinks of. Objective - Appearance Appearance: Thin Framed Dysmorphic Features: No Hygiene: Normal Grooming: Well Kept - Behavior Psychomotor Activities: Normal Exhibits Abnormal Movement: No - Attitude and Relatedness Attitude and Relatedness: Cooperative Eye Contact: Good - Speech Quality: Unpressured Latencies: Normal Quantity: Appropriate - Mood Patient's Decription of Mood: "Good" - Affect Observed Affect: Good Affect Consistent with: Euthymia - Thought Process Patient's Thought Process: Coherent, Goal Directed Thought Content: No Passive Wish, No Suicidal Planning, No Homicidal Ideation, No Paranoid Ideation - Sensorium Experiencing Hallucinations: No, Sensorium is Clear Type of Hallucinations: Visual: No, Auditory: No, Command: No - Level of Consciousness Level of Consciousness: Alert Orientation: Yes Intact, Yes Orientated to Time, Yes Orientated to Place, Yes Orientated to Person - Impulse Control Impulse Control: Intact - Insight and Judgement Insight and Judgement: Poor - Group Participation Particating in Group Activities: Yes - Medication Management Medication Management Adherence: Yes Assessment - Assessment Merits Inpatient Hospitalization: For Stabilization, Consolidate Improvements, For Discharge Planning, Pending Safe DC Plan Inpatient DSM-IV Dx: Other specified depressive and psychotic disorders. Clinical Impression: Ms. 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 We will be attempting to address again her episodes of catatonia. We will be attempting to elicit from her cooperation with gathering further information to ensure her safety prior to discharge. At the very least, we are hopeful that we will have sufficient observation on the unit of her functioning to indicate safety for discharge. Otherwise, we may need to consider long-term care to ensure her safety. As she is not even responding to request to be interviewed, much less signing HIPAA releases, we remain stymied in gathering either subjective report or collateral for determination of her safety for discharge. She will therefore remain admitted on 939 status pending adequate information for assessment as safe for discharge. 1.3.17 Progress with talking with us now, but still a ways to go toward working collaboratively toward discharge. Have explained to her that we will need to speak with collateral contacts to determine her safety for discharge against isolation and poor care for self indicated by chaotic wellness check that led to this admission. 1.4.17 Continues to refuse to engage in interview sufficiently to make safety assessment. Refusing meds, groups. 1.6.17 Still refusing to permit contact with collateral, engage in useful discussion of circumstances leading to hospitalization or plan for discharge. Often entirely unresponsive, and so she was today as I tried to rouse her from bed for an interview. 1.9.17 Again today, entirely unresponsive, so not allowing full assessment nor any form of collaboration toward safe discharge. 1.11.17 T.O.O. granted, challenge to 9.39 not granted. Remarkably lucid in court. Will start treatment tomorrow. 1.12.17 Today Susan is cooperative and collaborative and pleasant. She is med compliant with no complaints of side effects, the potentials for which we have reviewed, and she has agreed to take the PO meds that are ordered with knowledge and acceptance of potential side effects seeing likely benefits as outweighing risks. She has asked for Staff Pass and q30 checks and comfort room privileges. Added 40 mg atorvastatin after reviewing follow-up recommendations from medical admission with Bakari Denis: this had not been a d/ c med in Dr Freire's d/c summary, but Ms Denis assessed her as needing this for her cardiac risk and lipid profile on review of the case with me today. 1.18.17 Susan has recovered well, with improved mood, no catatonic spells over the past week, med compliant under T.O.O. Will be looking to gather collateral in support of discharge safety planning to forestall repeat admission for nonresponsive spells. Plan - Plan Treatment Plan: Name: SUSAN MEDRANO Birthdate: 1950 [id number] Gather collateral as soon as she permits. Monitor MS and safety. Encourage med compliance under T.O.O. (took all today except statin). Dispo per collateral and subjective report, would likely benefit from referral to mental health clinic, has now tacitly agreed to this, will benefit from firming commitment during remaining inpatient stay. Continued care necessary to reduce high risk of imminent serious physical harm from inadequate self-care, but if current trends continue and collateral can be contacted to plan for safety after discharge, may be safe for discharge this week. Discharge will be when we can confirm safety through sustained remission of catatonia, stable euthymic mood, organized thought and behavior, and commitment to adequate aftercare plan. Medications: Current Medications Aspirin (Aspirin Ec Low Dose*) 81 mg PO DAILY [facility] Last Admin: 09/13/16 08:30 Dose: 81 mg Atorvastatin Calcium (Lipitor*) 40 mg PO 2100 [facility] Last Admin: 09/13/16 02:39 Dose: Not Given Fluoxetine HCl (Prozac Cap*) 10 mg PO DAILY [facility] Last Admin: 09/13/16 08:30 Dose: 10 mg Lorazepam (Ativan Tab(*)) 0.5 mg PO BID [facility] Last Admin: 09/13/16 08:30 Dose: 0.5 mg Lorazepam (Ativan Inj*) 2 mg IM BID PRN PRN Reason: catatonia Olanzapine (Zyprexa *Odt*) 10 mg PO BEDTIME [facility] Last Admin: 09/12/16 19:53 Dose: 10 mg - Discharge Plan Discharge Plan: Outpatient Follow Up
[2016-09-13] MEDS: OLANzapine TAB*ODT* 10 MG TAB PO SCH (20:28)
[2016-09-14] MEDS: Aspirin EC Low Dose* 81 MG TAB.EC PO SCH (08:29)
[2016-09-14] MEDS: FLUoxetine CAP* 10 MG PO SCH (08:29)
[2016-09-14] MEDS: LORazepam TAB(*) 0.5 MG PO SCH ×2 (08:29→20:50)
[2016-09-14] MEDS: Atorvastatin* 40 MG TAB PO SCH (20:50)
[2016-09-14] MEDS: OLANzapine TAB*ODT* 10 MG TAB PO SCH (20:50)
[2016-09-15] MEDS: Aspirin EC Low Dose* 81 MG TAB.EC PO SCH (08:25)
[2016-09-15] MEDS: FLUoxetine CAP* 10 MG PO SCH (08:26)
[2016-09-15] MEDS: LORazepam TAB(*) 0.5 MG PO SCH ×2 (08:26→20:13)
--- NOTE | 2016-09-15 12:50 | PN ---
Subjective - Subjective Service Type: 27772 Hosp care 15 min low complexity Subjective: Again today gives an 'all is well' report of good mood, no psychosis or dangerous intent or plan. Agrees to sign release for [facility]. Objective - Appearance Appearance: Thin Framed Dysmorphic Features: No Hygiene: Normal Grooming: Fairly Well Kept - Behavior Psychomotor Activities: Normal Exhibits Abnormal Movement: No - Attitude and Relatedness Attitude and Relatedness: Superficially Cooperative Eye Contact: Fair - Speech Quality: Unpressured Latencies: Normal Quantity: Terse - Mood Patient's Decription of Mood: "Good" - Affect Observed Affect: Constricted Affect Consistent with: Euthymia - Thought Process Patient's Thought Process: Goal Directed, Impoverished Thought Content: No Passive Wish, No Suicidal Planning, No Homicidal Ideation, No Paranoid Ideation - Sensorium Experiencing Hallucinations: No, Sensorium is Clear Type of Hallucinations: Visual: No, Auditory: No, Command: No - Level of Consciousness Level of Consciousness: Alert Orientation: Yes Intact, Yes Orientated to Time, Yes Orientated to Place, Yes Orientated to Person - Impulse Control Impulse Control: Intact - Insight and Judgement Insight and Judgement: Poor - Group Participation Particating in Group Activities: Yes - Medication Management Medication Management Adherence: Yes Assessment - Assessment Merits Inpatient Hospitalization: Consolidate Improvements, For Discharge Planning Inpatient DSM-IV Dx: Other specified depressive and psychotic disorders. Clinical Impression: Ms. 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 We will be attempting to address again her episodes of catatonia. We will be attempting to elicit from her cooperation with gathering further information to ensure her safety prior to discharge. At the very least, we are hopeful that we will have sufficient observation on the unit of her functioning to indicate safety for discharge. Otherwise, we may need to consider long-term care to ensure her safety. As she is not even responding to request to be interviewed, much less signing HIPAA releases, we remain stymied in gathering either subjective report or collateral for determination of her safety for discharge. She will therefore remain admitted on 9.39 status pending adequate information for assessment as safe for discharge. 1.3.17 Progress with talking with us now, but still a ways to go toward working collaboratively toward discharge. Have explained to her that we will need to speak with collateral contacts to determine her safety for discharge against isolation and poor care for self indicated by chaotic wellness check that led to this admission. 1.4.17 Continues to refuse to engage in interview sufficiently to make safety assessment. Refusing meds, groups. 1.6.17 Still refusing to permit contact with collateral, engage in useful discussion of circumstances leading to hospitalization or plan for discharge. Often entirely unresponsive, and so she was today as I tried to rouse her from bed for an interview. 1.9.17 Again today, entirely unresponsive, so not allowing full assessment nor any form of collaboration toward safe discharge. 1.11.17 T.O.O. granted, challenge to 9.39 not granted. Remarkably lucid in court. Will start treatment tomorrow. 1.12.17 Today Susan is cooperative and collaborative and pleasant. She is med compliant with no complaints of side effects, the potentials for which we have reviewed, and she has agreed to take the PO meds that are ordered with knowledge and acceptance of potential side effects seeing likely benefits as outweighing risks. She has asked for Staff Pass and q30 checks and comfort room privileges. Added 40 mg atorvastatin after reviewing follow-up recommendations from medical admission with Bakari Denis: this had not been a d/ c med in Dr Freire's d/c summary, but Ms Denis assessed her as needing this for her cardiac risk and lipid profile on review of the case with me today. 1.18.17 Susan has recovered well, with improved mood, no catatonic spells over the past week, med compliant under T.O.O. Will be looking to gather collateral in support of discharge safety planning to forestall repeat admission for nonresponsive spells. 1.20.17 Susan has had no recurrence of catatonia since she has been medication compliant. She has also been attending groups. She is generally pleasant, though still somewhat guarded. We are on the verge of safe discharge with her, as she agrees now to referral to [facility]. It would help to ensure her safety to have contact with others in the community who she sees regularly, but she can only come up with one friend who is on vacation in [place] without a cell phone, she says. Plan - Plan Treatment Plan: Name: SUSAN MEDRANO Birthdate: 1950 [id number] Gather collateral as soon as she permits. Monitor MS and safety. Encourage med compliance under T.O.O. . Dispo per collateral and subjective report, would likely benefit from referral to mental health clinic, has now tacitly agreed to this, will benefit from firming commitment during remaining inpatient stay. Continued care necessary to reduce high risk of imminent serious physical harm from inadequate self-care, but if current trends continue and collateral can be contacted to plan for safety after discharge, may be safe for discharge early next week. Discharge will be when we can confirm safety through sustained remission of catatonia, stable euthymic mood, organized thought and behavior, and commitment to adequate aftercare plan. Medications: Current Medications Aspirin (Aspirin Ec Low Dose*) 81 mg PO DAILY [facility] Last Admin: 09/15/16 08:25 Dose: 81 mg Atorvastatin Calcium (Lipitor*) 40 mg PO 2100 [facility] Last Admin: 09/14/16 20:50 Dose: 40 mg Fluoxetine HCl (Prozac Cap*) 10 mg PO DAILY [facility] Last Admin: 09/15/16 08:26 Dose: 10 mg Lorazepam (Ativan Tab(*)) 0.5 mg PO BID [facility] Last Admin: 09/15/16 08:26 Dose: 0.5 mg Lorazepam (Ativan Inj*) 2 mg IM BID PRN PRN Reason: catatonia Olanzapine (Zyprexa *Odt*) 10 mg PO BEDTIME [facility] Last Admin: 09/14/16 20:50 Dose: 10 mg - Discharge Plan Discharge Plan: Outpatient Follow Up Outpatient Program: [facility]
--- NOTE | 2016-09-15 13:16 | PN ---
MHU: Group Therapy Note - Service Type Service Type: 05670 Group Psychotherapy - Cognitive Behavioral Group Therapy ( CBT):Patient attended CBT programming this morning and presented with flat affect that did not vary with discussion. Although responsive to direct prompts to respond to questions, patient did not engage in spontaneous conversation.
[2016-09-15] MEDS: Atorvastatin* 40 MG TAB PO SCH (20:13)
[2016-09-15] MEDS: OLANzapine TAB*ODT* 10 MG TAB PO SCH (20:14)
[2016-09-16] MEDS: LORazepam TAB(*) 0.5 MG PO SCH ×2 (09:05→20:50)
[2016-09-16] MEDS: Aspirin EC Low Dose* 81 MG TAB.EC PO SCH (09:05)
[2016-09-16] MEDS: FLUoxetine CAP* 10 MG PO SCH (09:06)
[2016-09-16] MEDS: Atorvastatin* 40 MG TAB PO SCH (20:50)
[2016-09-16] MEDS: OLANzapine TAB*ODT* 10 MG TAB PO SCH (20:50)
[2016-09-17] MEDS: Aspirin EC Low Dose* 81 MG TAB.EC PO SCH (08:28)
[2016-09-17] MEDS: LORazepam TAB(*) 0.5 MG PO SCH ×2 (08:28→20:23)
[2016-09-17] MEDS: FLUoxetine CAP* 10 MG PO SCH (08:28)
[2016-09-17] MEDS: Atorvastatin* 40 MG TAB PO SCH (20:22)
[2016-09-17] MEDS: OLANzapine TAB*ODT* 10 MG TAB PO SCH (20:23)
[2016-09-18] MEDS: LORazepam TAB(*) 0.5 MG PO SCH (08:55)
[2016-09-18] MEDS: FLUoxetine CAP* 10 MG PO SCH (08:55)
[2016-09-18] MEDS: Aspirin EC Low Dose* 81 MG TAB.EC PO SCH (08:55)
--- NOTE | 2016-09-18 13:54 | PN ---
MHU: Group Therapy Note - Service Type Service Type: [id number] Group Psychotherapy - Cognitive Behavioral Group Therapy ( CBT):Patient was attentive and participatory in CBT programming this morning, and remained in good behavioral control. Patient expressed positive insights regarding relevant treatment interventions and goals.
--- NOTE | 2016-09-18 14:56 | DS ---
Subjective - Subjective Service Types: [id number] [facility] Day Mgmt simple under 30 min Discharge Date: 09/18/16 Subjective: Susan has agreed to follow-up care with visiting nursing services and [facility]. Despite asking almost daily, she does not give us the name of anyone we can speak to to increase collateral report of her condition prior to admission, nor to alert to recent history and risks so they can help keep her safe with home visits. She says that she will call friends when she wishes, but does not wish for us to do so. She does say that she will follow up with intake at [facility], PCP regarding cardiac event leading to medical admission, and will allow visiting nursing to come check on her at intervals. She agrees to take all 5 of her current medications, and to confer with providers arranged for outpatient follow up before tapering off or stopping any meds. Objective - Appearance Appearance: Thin Framed Dysmorphic Features: No Hygiene: Normal Grooming: Well Kept - Behavior Psychomotor Activities: Normal Exhibits Abnormal Movement: No - Attitude and Relatedness Attitude and Relatedness: Well Related Eye Contact: Good - Speech Quality: Unpressured Latencies: Normal Quantity: Appropriate - Mood Patient's Decription of Mood: "Good" - Affect Observed Affect: Good Affect Consistent with: Euthymia - Thought Process Patient's Thought Process: Coherent, Goal Directed Thought Content: No Passive Wish, No Suicidal Planning, No Homicidal Ideation, No Paranoid Ideation - Sensorium Experiencing Hallucinations: No, Sensorium is Clear Type of Hallucinations: Visual: No, Auditory: No, Command: No - Level of Consciousness Level of Consciousness: Alert Orientation: Yes Intact, Yes Orientated to Time, Yes Orientated to Place, Yes Orientated to Person - Insight and Judgement Insight and Judgement: Fair - Group Participation Particating in Group Activities: Yes - Medication Management Medication Management Adherence: Yes Treatment Course & Assessment Clinical Course & Impression: Day of admission: Ms. 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 We will be attempting to address again her episodes of catatonia. We will be attempting to elicit from her cooperation with gathering further information to ensure her safety prior to discharge. At the very least, we are hopeful that we will have sufficient observation on the unit of her functioning to indicate safety for discharge. Otherwise, we may need to consider long-term care to ensure her safety. As she is not even responding to request to be interviewed, much less signing HIPAA releases, we remain stymied in gathering either subjective report or collateral for determination of her safety for discharge. She will therefore remain admitted on 39 status pending adequate information for assessment as safe for discharge. 1.3.17 Progress with talking with us now, but still a ways to go toward working collaboratively toward discharge. Have explained to her that we will need to speak with collateral contacts to determine her safety for discharge against isolation and poor care for self indicated by chaotic wellness check that led to this admission. 1.4.17 Continues to refuse to engage in interview sufficiently to make safety assessment. Refusing meds, groups. 1.6.17 Still refusing to permit contact with collateral, engage in useful discussion of circumstances leading to hospitalization or plan for discharge. Often entirely unresponsive, and so she was today as I tried to rouse her from bed for an interview. 1.9.17 Again today, entirely unresponsive, so not allowing full assessment nor any form of collaboration toward safe discharge. 1.11.17 T.O.O. granted, challenge to 939 not granted. Remarkably lucid in court. Will start treatment tomorrow. 1.12.17 Today Susan is cooperative and collaborative and pleasant. She is med compliant with no complaints of side effects, the potentials for which we have reviewed, and she has agreed to take the PO meds that are ordered with knowledge and acceptance of potential side effects seeing likely benefits as outweighing risks. She has asked for Staff Pass and q30 checks and comfort room privileges. Added 40 mg atorvastatin after reviewing follow-up recommendations from medical admission with Bakari Denis: this had not been a d/ c med in Dr Freire's d/c summary, but Ms Denis assessed her as needing this for her cardiac risk and lipid profile on review of the case with me today. 1.18.17 Susan has recovered well, with improved mood, no catatonic spells over the past week, med compliant under T.O.O. Will be looking to gather collateral in support of discharge safety planning to forestall repeat admission for nonresponsive spells. 1.17 Susan has had no recurrence of catatonia since she has been medication compliant. She has also been attending groups. She is generally pleasant, though still somewhat guarded. We are on the verge of safe discharge with her, as she agrees now to referral to A. It would help to ensure her safety to have contact with others in the community who she sees regularly, but she can only come up with one friend who is on vacation in [facility] without a cell phone, she says. 1.17 Susan has agreed to attend intake at [facility], to have visiting nursing come to her home, and to follow up with her PCP regarding the cardiac event that led to her medical admission preceding this psychiatric admission. She has also agreed to take the 5 medications she has been taking here. I have explained that of these medications, Zyprexa may be one she can taper off in another month or 2 under supervision of outpatient providers, as it has a side effect profile including increased risk of onset of diabetes, weight gain, and dyslipidemia. She agrees that she will not stop it on her own, but will work with her [facility] provider to taper it off. Susan has had no repeated catatonic episodes, has engaged in groups productively, has been med compliant, and has been pleasant and collaborative on the unit since being compliant with medications under treatment over objection petition. She is assessed as at no acutely increased risk of harm to self or others and as capable of adequate self-care to avoid harm. She is cleared for discharge. Merits Inpatient Hospitalization: No Clear for Discharge: Adequate Clinical Respons, Acceptable Safety Profile, Low Utility of Inpt Care Inpatient DSM-IV Dx: Other specified depressive and psychotic disorders. - [place] III Medical Illness: cardiac event leading to hospitalization prior to psych admit, assessed as at low cardiac risk by workup on medical floor - [place] IV Stressors: limited social supports Family: estranged from son Primary Support Group: friends - [place] V VNP-Yagptd-Qpywa: 60 Estimate of Highest-Past Year: 60 Discharge Planning - Discharge Planning Discharge Plan: Outpatient Follow Up Outpatient Program: [facility] Recommendations for Continuing Care: Medication Management, Psychotherapy, Primary Care Followup - regarding cardiac event 08.22.16 Medications: Aspirin (Aspirin Ec Low Dose*) 81 mg PO DAILY [facility] Last Admin: 09/18/16 08:55 Dose: 81 mg Atorvastatin Calcium (Lipitor*) 40 mg PO 2100 [facility] Last Admin: 09/17/16 20:22 Dose: 40 mg Fluoxetine HCl (Prozac Cap*) 10 mg PO DAILY [facility] Last Admin: 09/18/16 08:55 Dose: 10 mg Lorazepam (Ativan Tab(*)) 0.5 mg PO BID [facility] Last Admin: 09/18/16 08:55 Dose: 0.5 mg Olanzapine (Zyprexa *Odt*) 10 mg PO BEDTIME [facility] Last Admin: 09/17/16 20:23 Dose: 10 mg Discharge Planning: Prescriptions provided for discharge [x] Yes [] No Follow up care details as per social work arrangements. Patient response to discharge plan: [x] eager for discharge [x] agreeable with discharge plan [] ambivalent about discharge [] disagrees with discharge today
[2016-09-18 16:32] VITALS: BP 124/67
== END 2016-09-18 16:18 | disposition home or self-care (01) | DRG 885 ==
LOC: BSU 21:21
PROVIDERS: ADMIT Psychiatry & Neurology Psychiatry; ATTEND Psychiatry & Neurology Psychiatry
PROC: GZHZZZZ Group Psychotherapy (ICD-10-PCS; principal; 2016-08-24)
DX: F32.89 Other specified depressive episodes (principal); F20.2 Catatonic schizophrenia; Z68.1 Body mass index [BMI] 19.9 or less, adult; Z79.82 Long term (current) use of aspirin; R63.6 Underweight; Z88.8 Allergy status to other drugs, medicaments and biological substances; Z91.030 Bee allergy status
CPT/HCPCS: 90853; 99222; 99231; 99232; 99238; A9270-GY; J2060

== ENCOUNTER 2017-07-08 16:22 | Inpatient (IN) | payer MEDICARE ==
--- NOTE | 2017-07-08 17:38 | RAD ---
INDICATION: Dizziness COMPARISON: August 22, 2016 TECHNIQUE: Noncontrast axial source images were acquired from the skull base to the vertex. FINDINGS: Ventricles/sulci: The ventricles and cisterns are normal in size and configuration for age. Brain parenchyma: There is no focal parenchymal finding, evidence of intracranial mass, or intracranial mass effect. Intracranial hemorrhage:None. Extra-axial spaces: There are no abnormal extra axial fluid collections or evidence of extra-axial mass. Calvarium: There is no calvarial fracture or other calvarial abnormality. Scalp: There is no evidence of scalp or extracalvarial soft tissue abnormality. Paranasal sinuses/mastoid: The paranasal sinuses and mastoid air cells are clear. Other: None. IMPRESSION: NEGATIVE EXAMINATION
--- NOTE | 2017-07-08 17:40 | RAD ---
INDICATION: Weakness COMPARISON: Chest x-ray August 22, 2016 TECHNIQUE: An AP portable view obtained at 1715 hours is submitted. FINDINGS: Bones/Soft Tissues: There are no acute bony findings. Cardiomediastinal: The cardiomediastinal silhouette is normal. Lungs: There are no infiltrates. Pleura: There are no pleural effusions. Other: None IMPRESSION: NO ACTIVE DISEASE.
[2017-07-08] MEDS: NS 0.9% 1000 ML* 2,000 ML IV ONE ×2 (17:57→17:58)
[2017-07-08 18:33] LABS: Hematocrit 46 % (35-47); Mean Corpuscular HGB Conc 32 g/dl (31-36); Mean Corpuscular Hemoglobin 28 pg (27-31); Mean Corpuscular Volume 86 fL (80-97); Mean Platelet Volume 9 um3 (7.4-10.4); Red Blood Count 5.38 10^6/ul (4.0-5.4); Red Cell Distribution Width 14 % (10.5-15); White Blood Count 5.8 10^3/ul (3.5-10.8)
[2017-07-08 18:42] LABS: Albumin 4.5 g/dL (3.2-5.2); BUN/Creatinine Ratio 32.9 (8-20); Calcium 9.9 mg/dL (8.6-10.3); EGFR African American 85.8 (>60); EGFR Non-African American 66.7 (>60); Magnesium 2.2 mg/dL (1.9-2.7); Potassium 4.1 mmol/L (3.5-5.0); Total Bilirubin 0.7 mg/dL (0.2-1.0); Total Protein 7.5 g/dL (6.4-8.9)
[2017-07-08 18:44] LABS: Troponin I 0.03 ng/mL (<0.04)
[2017-07-08 20:32] LABS: Urine Bacteria Absent (Absent); Urine Bilirubin Negative (Negative); Urine Glucose Negative (Negative); Urine Nitrite Negative (Negative)
--- NOTE | 2017-07-08 21:25 | ED ---
Damion Phillips Abhishek, scribed for Glenn Brown on 07/08/17 at 1903 . Psychiatric Complaint - HPI Summary HPI Summary: This patient is a 67 year old F presenting to [facility] accompanied by male with a psychiatric chief complaint since a few days ago. Patients family member reports that she has a mental disorder for 3 to 4 years. He believes that patient may have stopped taking her medication 4 to 5 weeks ago. Patient was not responding to any commands or questions. The patient rates the pain 0/10 in severity. Symptoms aggravated by nothing. Symptoms alleviated by nothing. Patient family member reports weakness, dehydration. Patients family member denies fever. Triage notes state that pt was recommended for psych admission from PCP due to previous history with similar symptoms. - History Of Current Complaint Chief Complaint: EDMentalHealth Time Seen by Provider: 07/08/17 16:42 Hx Obtained From: Family/Transitions Rn Care Coordinator Onset/Duration: Lasting Weeks - patient may have stopped taking medication 4 weeks ago, Still Present, Worse Since - few days ago Timing: Constant Character: Lethargic Aggravating Factor(s): Nothing Alleviating Factor(s): Nothing Associated Signs And Symptoms: Positive: Appetite Change Related History: Positive For: Prior Psychiatric Issues - PCP states previous occurrance with similar symptoms occured last spring - Allergies/Home Medications Allergies/Adverse Reactions: Allergies Allergy/AdvReac Type Severity Reaction Status Date / Time Bee Venom Allergy Hives Verified 07/08/17 20:54 Procaine [From Novocain] Allergy Difficulty Verified 07/08/17 20:54 Breathing PMH/Surg Hx/FS Hx/Imm Hx Endocrine/Hematology History: Reports: Hx Thyroid Disease - hyperactive thyroid Cardiovascular History: Reports: Other Cardiovascular Problems/Disorders - HIGH TROPONINS Sensory History: Denies: Hx Contacts or Glasses Opthamlomology History: Denies: Hx Contacts or Glasses Psychiatric History: Reports: Hx Inpatient Treatment, Hx Community Mental Health Tx, Other Psychiatric Issues/Disorders - psychosis, catatonia Denies: Hx Anxiety, Hx Attention Deficit Hyperactivity Disorder, Hx Eating Disorder, Hx Depression, Hx Panic Disorder, Hx Post Traumatic Stress Disorder, Hx Schizophrenia, Hx Bipolar Disorder, Hx Suicide Attempt, Hx of Violent Episodes Against Others, Hx Substance Abuse - Surgical History Surgery Procedure, Year, and Place: Left foot bunion removal in her 20s - Immunization History Date of Tetanus Vaccine: PT NOT RESPONDING Date of Influenza Vaccine: PT NOT RESPONDING Infectious Disease History: No Infectious Disease History: Denies: Traveled Outside the [place] in Last 30 Days - Family History Known Family History: Positive: Cardiac Disease, Other - Negative psychiatric history Family History: father with cardiac dz at 45 - Social History Alcohol Use: None Hx Substance Use: No Substance Use Type: Reports: None Substance Use Comment - Amount & Last Used: Unknown Hx Tobacco Use: No Smoking Status (MU): Never Smoked Tobacco Have You Smoked in the Last Year: No Review of Systems Positive: Other - dehydration. Negative: Fever Eyes: Negative ENT: Negative Cardiovascular: Negative Respiratory: Negative Positive: Other - decreased appetite Genitourinary: Negative Musculoskeletal: Negative Skin: Negative Positive: Weakness Positive: Other - Lethargic All Other Systems Reviewed And Are Negative: Yes Physical Exam - Summary Physical Exam Summary: Appearance: lethargic General: Not giving any history. Skin: Mucous membranes dry Head/face: normal Eyes: EOMI, DAVI ENT: normal Neck: supple, non-tender Respiratory: CTA, breath sounds present Cardiovascular: RRR, pulses symmetrical Abdomen: non-tender, soft Bowel: present Musculoskeletal: normal, strength/ROM intact Neuro: RN HEDIS unable to assess as present Triage Information Reviewed: Yes Vital Signs On Initial Exam: Initial Vitals Temp Pulse Resp BP Pulse Ox 98.8 F 90 17 117/76 96 07/08/17 16:31 07/08/17 16:31 07/08/17 16:31 07/08/17 16:31 07/08/17 16:31 Vital Signs Reviewed: Yes Diagnostics - Vital Signs Vital Signs Temp Pulse Resp BP Pulse Ox 07/08/17 16:31 98.8 F 90 17 117/76 96 - Laboratory Lab Results: Lab Results 07/08/17 07/08/17 07/08/17 Range/Units 18:05 18:05 18:05 WBC 5.8 (3.5-10.8) 10^3/ul RBC 5.38 (4.0-5.4) 10^6/ul Hgb 15.0 (12.0-16.0) g/dl Hct 46 (35-47) % MCV 86 (80-97) fL MCH 28 (27-31) pg MCHC 32 (31-36) g/dl RDW 14 (10.5-15) % Plt Count 224 (150-450) 10^3/ul MPV 9 (7.4-10.4) um3 Neut % (Auto) 73.2 (38-83) % Lymph % (Auto) 16.5 L (25-47) % Dod[place]idge % (Auto) 8.9 (1-9) % Eos % (Auto) 0.3 (0-6) % Baso % (Auto) 1.1 (0-2) % Absolute Neuts (auto) 4.2 (1.5-7.7) 10^3/ul Absolute Lymphs (auto) 1.0 (1.0-4.8) 10^3/ul Absolute Monos (auto) 0.5 (0-0.8) 10^3/ul Absolute Eos (auto) 0 (0-0.6) 10^3/ul Absolute Basos (auto) 0.1 (0-0.2) 10^3/ul Absolute Nucleated RBC 0.02 10^3/ul Nucleated RBC % 0.4 INR (Anticoag Therapy) 0.98 (0.89-1.11) APTT 29.3 (26.0-36.3) seconds Sodium 143 (133-145) mmol/L Potassium 4.1 (3.5-5.0) mmol/L Chloride 107 (101-111) mmol/L Carbon Dioxide 21 L (22-32) mmol/L Anion Gap 15 H (2-11) mmol/L BUN 28 H (6-24) mg/dL Creatinine 0.85 (0.51-0.95) mg/dL Est GFR ( Amer) 85.8 (>60) Est GFR (Non-Af Amer) 66.7 (>60) BUN/Creatinine Ratio 32.9 H (8-20) Glucose 111 H (70-100) mg/dL Lactic Acid (0.5-2.0) mmol/L Calcium 9.9 (8.6-10.3) mg/dL Magnesium 2.2 (1.9-2.7) mg/dL Total Bilirubin 0.70 (0.2-1.0) mg/dL AST 22 (13-39) U/L ALT 28 (7-52) U/L Alkaline Phosphatase 51 (34-104) U/L Total Creatine Kinase 189 (10-223) U/L Troponin I 0.03 (<0.04) ng/mL Total Protein 7.5 (6.4-8.9) g/dL Albumin 4.5 (3.2-5.2) g/dL Globulin 3.0 (2-4) g/dL Albumin/Globulin Ratio 1.5 (1-3) Lipase 21 (11.0-82.0) U/L 11/12/17 Range/Units 18:05 WBC (3.5-10.8) 10^3/ul RBC (4.0-5.4) 10^6/ul Hgb (12.0-16.0) g/dl Hct (35-47) % MCV (80-97) fL MCH (27-31) pg MCHC (31-36) g/dl RDW (10.5-15) % Plt Count (150-450) 10^3/ul MPV (7.4-10.4) um3 Neut % (Auto) (38-83) % Lymph % (Auto) (25-47) % Doddridge % (Auto) (1-9) % Eos % (Auto) (0-6) % Baso % (Auto) (0-2) % Absolute Neuts (auto) (1.5-7.7) 10^3/ul Absolute Lymphs (auto) (1.0-4.8) 10^3/ul Absolute Monos (auto) (0-0.8) 10^3/ul Absolute Eos (auto) (0-0.6) 10^3/ul Absolute Basos (auto) (0-0.2) 10^3/ul Absolute Nucleated RBC 10^3/ul Nucleated RBC % INR (Anticoag Therapy) (0.89-1.11) APTT (26.0-36.3) seconds Sodium (133-145) mmol/L Potassium (3.5-5.0) mmol/L Chloride (101-111) mmol/L Carbon Dioxide (22-32) mmol/L Anion Gap (2-11) mmol/L BUN (6-24) mg/dL Creatinine (0.51-0.95) mg/dL Est GFR ( Amer) (>60) Est GFR (Non-Af Amer) (>60) BUN/Creatinine Ratio (8-20) Glucose (70-100) mg/dL Lactic Acid 1.1 (0.5-2.0) mmol/L Calcium (8.6-10.3) mg/dL Magnesium (1.9-2.7) mg/dL Total Bilirubin (0.2-1.0) mg/dL AST (13-39) U/L ALT (7-52) U/L Alkaline Phosphatase (34-104) U/L Total Creatine Kinase (10-223) U/L Troponin I (<0.04) ng/mL Total Protein (6.4-8.9) g/dL Albumin (3.2-5.2) g/dL Globulin (2-4) g/dL Albumin/Globulin Ratio (1-3) Lipase (11.0-82.0) U/L Result Diagrams: 07/08/17 18:05 07/08/17 18:05 Lab Statement: Any lab studies that have been ordered have been reviewed, and results considered in the medical decision making process. - Radiology Chest X-ray Radiology Interpretation Completed By: Radiologist - CXR reveals, per radiologist, NO ACTIVE DISEASE. ED physician has reviewed this radiology report and agrees. - CT Brain CT CT Interpretation Completed By: Radiologist - A Brain CT reveals NEGATIVE EXAMINATION ED physician has reviewed this radiology report and agrees. - EKG 1748 EKG Rhythm: Sinus Rhythm EKG Interpretation: An EKG reveals sinus rhythm, RBBB and 83 BPM Course/Dx - Course Course Of Treatment: This patient is a 67 year old F presenting to [facility] accompanied by male with a psychiatric chief complaint since a few days ago. Patients family member reports that she has a mental disorder for 3 to 4 years. He believes that patient may have stopped taking her medication 4 to 5 weeks ago. Patient family member reports weakness, dehydration and decreased appetite. Patients family member denies fever. An EKG reveals sinus rhythm RBBB at 1748 and 83 BPM CXR reveals, per radiologist, NO ACTIVE DISEASE. A Brain CT reveals NEGATIVE EXAMINATION. We discussed patient care with Dr. Freire and they accept patient care at 2044. 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 The patient is agreeable with this plan. - Differential Dx/Clinical Impression Differential Diagnosis/HQI/PQRI: Positive: Acute Psychosis, Depression, Schizophrenia, Other - catatonia Provider Diagnosis: Schizophrenia, Catatonia, Altered mental state - Physician Notifications Discussed Care Of Patient With: Wallace Freire Time Discussed With Above Provider: 20:45 Instructed by Provider To: Admit As Inpatient Discharge - Discharge Plan Condition: Stable Disposition: ADMITTED TO [facility] Referrals: Payton Junior MD [Primary Care Provider] - The documentation as recorded by the Damion stern Abhishek accurately reflects the service I personally performed and the decisions made by , Glenn Brown.
[2017-07-09] MEDS ORDERED: Al Hydrox/Mg Hydrox/Simet LIQ* 30 ML UDC PO PRN (04:28)
[2017-07-09] MEDS ORDERED: Acetaminophen TAB* 325 MG PO PRN (04:28)
[2017-07-09] MEDS: Vitamin THERAPEUTIC TAB PO SCH (08:26)
--- NOTE | 2017-07-09 20:33 | HP ---
PSYCHIATRIC HISTORY AND PHYSICAL: DATE OF ADMISSION: 07/09/17 JUSTIFICATION FOR ADMISSION: The patient is in need of 24-hour supervision and support secondary to psychosis and inability to care for herself in a less restrictive setting. CHIEF COMPLAINT: "I shocked myself with an electric prong." HISTORY OF PRESENT ILLNESS: The patient is a 67-year-old white female with a history of psychotic depression and at least 3 prior admissions on the behavioral science unit here at [facility] who is now brought to the emergency room by her son due to reports that she has been lying in bed and not caring for herself or her animals. The patient, when he brought her in, was unable to confirm when she last ate or drink. She was largely unresponsive. Initially, the patient did not speak or respond to any prompts and did not acknowledge being spoken to. She was observed lying on a stretcher in the same position for extended periods of time with her eyes closed, although intermittently she would open her eyes to stare blankly at the ceiling. Approximately 7 hours after her arrival in the ED, she did spontaneously request to use the restroom where she ambulated with 1 person to assist her. Afterwards, she was provided with a turkey sandwich and ice water, which she did consume. Later when she was prompted about her reason for being in the ED, she stated "I got an electric shock." The patient denied having knowledge of how or when she was brought to the ED. She denied suicidal or homicidal ideations or auditory or visual hallucinations. When I met with her, she was cooperative and followed me to the consult room. She was not quite clear how she had gotten here, but does state the same story about picking up an electric cord that was charged while she was standing in a puddle of water and accidentally shocked herself. It is unclear whether this has any basis in reality. What is significant is that she has long speech latencies, often will only stare at this provider when asked questions and she has had a 9-pound weight loss since her most recent discharge. In addition, there are ketones in her urine, which further suggest that she has not been taking care of her activities of daily living, most notably eating and drinking appropriately. I was not able to reach her son for collateral contact. I did screen her for neurovegetative symptoms of depression , most of which she denies, although she later admits to me that she has been depressed. I asked her about treatment in the outpatient setting and she states that she no longer sees anyone at [facility] because all of her healthcare is now managed by her family practice provider, a nurse practitioner named Payton Junior. PAST PSYCHIATRIC HISTORY: The patient has 3 prior psychiatric admissions here at the behavioral science unit, all under the service of Dr. Curt Reid, the first being in January 2016. From there, she was immediately transferred to the medical service for a medical workup, but then transferred a day later back to the [facility]. Third hospitalization was in late July 2016. 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 She has been taken to court for treatment over her objection in the past and is typically treated with a combination of Prozac and olanzapine. She is supposed to be seen at the [facility], but it is clear that she has not been there in at least several months. PAST MEDICAL HISTORY: Significant for hyperlipidemia. MEDICATIONS: Currently, she states that she takes p.r.n. lorazepam for anxiety. ALLERGIES: She is allergic to BEE VENOM and PROCAINE. FAMILY HISTORY: Noncontributory. SUBSTANCE ABUSE HISTORY: The patient denies use of alcohol, illicit drugs, or tobacco. SOCIAL HISTORY: The patient states that she lives in [place]. She apparently works part-time at the [employer]. She was between 10 and 15 years, but her in 1991. She does have a son who lives in [place], [place], who is in his mid 30s. The patient is somewhat socially isolated, having very few friends and not much support in the community. REVIEW OF SYSTEMS: The patient denies headache or double vision. She denies sore throat, cough, chest pain, difficulty breathing. She denies abdominal pain , nausea, vomiting, diarrhea, or constipation. She denies difficulty ambulating , enlarged lymph nodes, rashes, fevers. She does admit to a 10-pound recent weight loss, which is unintentional. PHYSICAL EXAMINATION VITAL SIGNS: Blood pressure is 130/64, heart rate 66, respiratory rate 16, temperature 97.7 degrees Fahrenheit, and oxygen saturations are 100% on room air. HEENT: Head is normocephalic, atraumatic. NECK: Supple. CHEST: Clear to auscultation bilaterally. CARDIAC: Reveals normal heart sounds. ABDOMEN: Soft and nontender. MUSCULOSKELETAL: Shows no sign of edema. NEUROLOGICAL: She is grossly intact with no focal deficits. SKIN: Warm and dry. LABORATORY DATA: Complete blood count is within normal limits. Complete metabolic panel shows a glucose slightly elevated at 111. Urinalysis shows 2+ ketones. MENTAL STATUS EXAMINATION: The patient is an under-nourished aging white female who is clean and well groomed with longish navarro hair. She is sitting on the couch with fairly good posture, somewhat intense eye contact. Speech is minimal with no spontaneity and revealed some latencies. Mood appears to be dysthymic with a constricted affect. Thought process is impoverished with thought blocking. Thought content is significant for her desire to be in the hospital for 1 week. She denies suicidal or homicidal ideations. She denies auditory or visual hallucinations. Insight and judgment are poor given her lack of self-care in the community. Cognitively, she is awake and alert. DIAGNOSES: [place] I: Major depressive disorder, recurrent, severe with psychotic features. [place] II: Deferred. [place] III: Hyperlipidemia. [place] IV: Moderate primary support stressors. [place] V: Currently 30. ASSESSMENT: The patient is a 67-year-old white female with a history of recurrent psychotic depression who arrives at the hospital having been brought in by her son due to unresponsiveness and lack of self-care secondary to psychosis. She is no longer taking any medications or going to outpatient followups at [facility] and appears to have gotten depressed , psychotic and warranting inpatient admission. PLAN: The patient is admitted to the adult behavioral health unit where she was placed on q.15 minute checks for her own safety. We will be strongly encouraging her to eat and drink normal amounts of intake. We will also resume oral psychotropic medications including fluoxetine 10 mg p.o. daily and olanzapine 10 mg p.o. daily. At this point, given her lack of followthrough with standard outpatient treatment, we could consider assertive community treatment in which intensive psychiatric and rehabilitative services are brought to her in her place of residence. If she is uncooperative for nonadherent with medications, we can certainly consider taking her to court to pursue treatment over her objection. We could also consider long-acting injectable antipsychotic. While she is here, she is certainly encouraged to avail herself of all milieu activities including individual and group psychotherapies. [id number]/[facility] #: [id number] COLT
[2017-07-10] MEDS: OLANzapine TAB* 10 MG PO SCH ×2 (07:27→21:10)
[2017-07-10] MEDS ORDERED: Influenza VAC *QUAD* 2017-18* 0.5 ML SYRINGE IM ONE (09:00)
[2017-07-10] MEDS ORDERED: Pneumococcal *Vac Polyvalent 0.5 ML VIAL IM ONE (09:00)
[2017-07-10] MEDS: FLUoxetine CAP* 10 MG PO SCH ×2 (09:39→11:16)
[2017-07-10] MEDS: Vitamin THERAPEUTIC TAB PO SCH ×2 (09:40→11:16)
--- NOTE | 2017-07-10 13:01 | PN ---
Subjective - Subjective Service Type: 40846 Hosp care 15 min low complexity Subjective: The patient is doing poorly so far on the unit; has been observed talking to herself, is catatonic at times and is selective with medications. This AM I enter her room and she is lying flat on her bed staring blankly at the ceiling. She is unable/unwilling to interact with me and does not answer any of my questions. I am told that she refused olanzapine last night and is eating and drinking sporadically. Objective - Appearance Appearance: Thin Framed Dysmorphic Features: No Hygiene: Normal Grooming: Fairly Well Kept - Behavior Psychomotor Activities: Abnormal-Decreased Exhibits Abnormal Movement: No - Attitude and Relatedness Attitude and Relatedness: Withdrawn Eye Contact: Poor - Speech Quality: Unpressured Latencies: Long Quantity: Terse - Mood Patient's Decription of Mood: mute - Affect Observed Affect: Unvariable Affect Consistent with: Dysphoria - Thought Process Patient's Thought Process: Impoverished Thought Content: Yes Paranoid Ideation, No Passive Wish, No Suicidal Planning, No Homicidal Ideation - Sensorium Experiencing Hallucinations: Yes Type of Hallucinations: Visual: No, Auditory: Yes, Command: No - Level of Consciousness Level of Consciousness: Lethargic Orientation: Yes Intact, Yes Orientated to Time, Yes Orientated to Place, Yes Orientated to Person - Impulse Control Impulse Control: Poor - Insight and Judgement Insight and Judgement: Impaired - Group Participation Particating in Group Activities: No - Medication Management Medication Management Adherence: No Assessment - Assessment Merits Inpatient Hospitalization: For Immediate Safety, For Stabilization Inpatient DSM-IV Dx: MDD, recurrent, severe with psychotic features Clinical Impression: Patient is a 67 y.o. , white female with a history of recurrent psychotic depression brought in by her son to the ED after being discovered unresponsive, psychotic and unable to meet her own basic needs in her home. On exam she is catatonic. She is similarly observed on our unit to not to be caring for her own ADLs, specifically eating, drinking or taking prescribed medications. Plan - Plan Treatment Plan: Name: KEMI MEDRANO Birthdate: 1950 [id number] The patient has been placed back on fluoxetine 10mg PO qday and olanzapine 10mg PO qhs, however, she is non-adherent with these and also not eating/drinking appropriately. We will initiate T.O.O. proceedings and place on a 2PC legal status. Continue to treat on inpatient unit. Continued Medication Management: Continue Outpt Medication Medications: Current Medications Acetaminophen (Tylenol Tab*) 650 mg PO Q4H PRN PRN Reason: PAIN or TEMP > 101 F Al Hydrox/Mg Hydrox/Simethicone (Maalox Plus*) 30 ml PO Q4H PRN PRN Reason: INDIGESTION Fluoxetine HCl (Prozac Cap*) 10 mg PO DAILY [facility] Last Admin: 07/10/17 11:16 Dose: 10 mg Multivitamins (Theragran Tab*) 1 tab PO DAILY [facility] Last Admin: 07/10/17 11:16 Dose: 1 tab Olanzapine (Zyprexa Tab*) 10 mg PO BEDTIME [facility] Last Admin: 07/10/17 07:27 Dose: Not Given - Discharge Plan Discharge Plan: Inpatient Hospitalization
[2017-07-11] MEDS: FLUoxetine CAP* 10 MG PO SCH (11:12)
[2017-07-11] MEDS: Vitamin THERAPEUTIC TAB PO SCH (11:12)
--- NOTE | 2017-07-11 11:18 | PN ---
Subjective - Subjective Service Type: 50543 Hosp care 15 min low complexity Subjective: Susan was yet again unresponsive as I entered her room this morning. All day yesterday, her only food intake was some light fare such as yogurt at breakfast , nothing thereafter. She denies SI or HI but cannot safety plan for the future and has no insight into her own limitations. The patient is non- adherent with medications. Objective - Appearance Appearance: Thin Framed Dysmorphic Features: No Hygiene: Normal Grooming: Fairly Well Kept - Behavior Psychomotor Activities: Abnormal-Decreased Exhibits Abnormal Movement: No - Attitude and Relatedness Attitude and Relatedness: Withdrawn Eye Contact: Poor - Speech Quality: Unpressured Latencies: Long Quantity: Terse - Mood Patient's Decription of Mood: "Okay" - Affect Observed Affect: Unvariable Affect Consistent with: Euthymia - Thought Process Patient's Thought Process: Impoverished Thought Content: Yes Paranoid Ideation, No Passive Wish, No Suicidal Planning, No Homicidal Ideation - Sensorium Experiencing Hallucinations: Yes Type of Hallucinations: Visual: No, Auditory: Yes, Command: No - Level of Consciousness Level of Consciousness: Lethargic Orientation: Yes Intact, Yes Orientated to Time, Yes Orientated to Place, Yes Orientated to Person - Impulse Control Impulse Control: Poor - Insight and Judgement Insight and Judgement: Impaired - Group Participation Particating in Group Activities: No - Medication Management Medication Management Adherence: No Assessment - Assessment Merits Inpatient Hospitalization: For Immediate Safety, For Stabilization Inpatient DSM-IV Dx: MDD, recurrent, severe with psychotic features Clinical Impression: Patient is a 67 y.o. , white female with a history of recurrent psychotic depression brought in by her son to the ED after being discovered unresponsive, psychotic and unable to meet her own basic needs in her home. On exam she is catatonic. She is similarly observed on our unit to not to be caring for her own ADLs, specifically eating, drinking or taking prescribed medications. Plan - Plan Treatment Plan: Name: SUSAN MEDRANO Birthdate: 1950 [id number] The patient has been placed back on fluoxetine 10mg PO qday and olanzapine 10mg PO qhs, however, she is non-adherent with these and also not eating/drinking appropriately. We will initiate T.O.O. proceedings and place on a 2PC legal status. Continue to treat on inpatient unit. Continued Medication Management: Start Medication Medications: Current Medications Acetaminophen (Tylenol Tab*) 650 mg PO Q4H PRN PRN Reason: PAIN or TEMP > 101 F Al Hydrox/Mg Hydrox/Simethicone (Maalox Plus*) 30 ml PO Q4H PRN PRN Reason: INDIGESTION Fluoxetine HCl (Prozac Cap*) 10 mg PO DAILY [facility] Last Admin: 07/11/17 11:12 Dose: Not Given Multivitamins (Theragran Tab*) 1 tab PO DAILY [facility] Last Admin: 07/11/17 11:12 Dose: Not Given Olanzapine (Zyprexa Tab*) 10 mg PO BEDTIME [facility] Last Admin: 07/10/17 21:10 Dose: Not Given - Discharge Plan Discharge Plan: Inpatient Hospitalization
[2017-07-11] MEDS: OLANzapine TAB* 10 MG PO SCH (21:38)
[2017-07-12] MEDS: Vitamin THERAPEUTIC TAB PO SCH (09:51)
[2017-07-12] MEDS: FLUoxetine CAP* 10 MG PO SCH (09:51)
--- NOTE | 2017-07-12 11:55 | PN ---
Subjective - Subjective Service Type: 96024 Hosp care 15 min low complexity Subjective: The patient did not get up for meals or medications at all yesterday and staff is concerned about her lack of self-care. The patient is awake when I meet with her this morning, but responds only minimally to questions. When told of the team's concerns about lack of PO intake, she responds "OK, I'll make sure I eat a good lunch." She denies SI or HI. She makes no spontaneous conversation and asks no questions. Objective - Appearance Appearance: Thin Framed Dysmorphic Features: No Hygiene: Normal Grooming: Fairly Well Kept - Behavior Psychomotor Activities: Abnormal-Decreased Exhibits Abnormal Movement: No - Attitude and Relatedness Attitude and Relatedness: Withdrawn Eye Contact: Poor - Speech Quality: Unpressured Latencies: Long Quantity: Terse - Mood Patient's Decription of Mood: "Fine" - Affect Observed Affect: Unvariable Affect Consistent with: Dysphoria - Thought Process Patient's Thought Process: Impoverished Thought Content: Yes Paranoid Ideation, No Passive Wish, No Suicidal Planning, No Homicidal Ideation - Sensorium Experiencing Hallucinations: Yes Type of Hallucinations: Visual: No, Auditory: Yes, Command: No - Level of Consciousness Level of Consciousness: Lethargic Orientation: Yes Intact, Yes Orientated to Time, Yes Orientated to Place, Yes Orientated to Person - Impulse Control Impulse Control: Poor - Insight and Judgement Insight and Judgement: Impaired - Group Participation Particating in Group Activities: No - Medication Management Medication Management Adherence: No Assessment - Assessment Merits Inpatient Hospitalization: For Immediate Safety, For Stabilization Inpatient DSM-IV Dx: MDD, recurrent, severe with psychotic features Clinical Impression: Patient is a 67 y.o. , white female with a history of recurrent psychotic depression brought in by her son to the ED after being discovered unresponsive, psychotic and unable to meet her own basic needs in her home. On exam she is catatonic. She is similarly observed on our unit to not to be caring for her own ADLs, specifically eating, drinking or taking prescribed medications. Plan - Plan Treatment Plan: Name: KEMI MEDRANO Birthdate: 1950 [id number] The patient has been placed back on fluoxetine 10mg PO qday and olanzapine 10mg PO qhs, however, she is non-adherent with these and also not eating/drinking appropriately. We will start lorazepam 1mg IM q6h for catatonia and initiate T.O.O. proceedings and place on a 2PC legal status. Continue to treat on inpatient unit. Continued Medication Management: Start Medication Medications: Current Medications Acetaminophen (Tylenol Tab*) 650 mg PO Q4H PRN PRN Reason: PAIN or TEMP > 101 F Al Hydrox/Mg Hydrox/Simethicone (Maalox Plus*) 30 ml PO Q4H PRN PRN Reason: INDIGESTION Fluoxetine HCl (Prozac Cap*) 10 mg PO DAILY [facility] Last Admin: 07/12/17 09:51 Dose: Not Given Lorazepam (Ativan Inj*) 1 mg IM Q6H PRN PRN Reason: catatonia Multivitamins (Theragran Tab*) 1 tab PO DAILY [facility] Last Admin: 07/12/17 09:51 Dose: Not Given Olanzapine (Zyprexa Tab*) 10 mg PO BEDTIME [facility] Last Admin: 07/11/17 21:38 Dose: Not Given - Discharge Plan Discharge Plan: Inpatient Hospitalization
[2017-07-12] MEDS: LORazepam INJ* 2 MG/ML 1 ML VIAL IM PRN (12:05)
[2017-07-12] MEDS: OLANzapine TAB* 10 MG PO SCH (21:38)
[2017-07-13] MEDS: Vitamin THERAPEUTIC TAB PO SCH (10:16)
[2017-07-13] MEDS: FLUoxetine CAP* 10 MG PO SCH (10:16)
[2017-07-13] MEDS: LORazepam INJ* 2 MG/ML 1 ML VIAL IM PRN ×2 (12:58→21:29)
--- NOTE | 2017-07-13 15:43 | PN ---
Subjective - Subjective Service Type: 91517 Hosp care 15 min low complexity Subjective: The patient remains sporadic with medications and meals, missing these far often than taking them. On exam, she is laying in bed staring unresponsively at the ceiling. Staff notes that the prn IM lorazepam administrations have very little effect on her catatonic states. Objective - Appearance Appearance: Thin Framed Dysmorphic Features: No Hygiene: Normal Grooming: Fairly Well Kept - Behavior Psychomotor Activities: Abnormal-Decreased Exhibits Abnormal Movement: No - Attitude and Relatedness Attitude and Relatedness: Withdrawn Eye Contact: Poor - Speech Quality: Unpressured Latencies: Long Quantity: Terse - Mood Patient's Decription of Mood: "Fine" - Affect Observed Affect: Unvariable Affect Consistent with: Dysphoria - Thought Process Patient's Thought Process: Impoverished Thought Content: Yes Paranoid Ideation, No Passive Wish, No Suicidal Planning, No Homicidal Ideation - Sensorium Experiencing Hallucinations: Yes Type of Hallucinations: Visual: No, Auditory: Yes, Command: No - Level of Consciousness Level of Consciousness: Lethargic Orientation: Yes Intact, Yes Orientated to Time, Yes Orientated to Place, Yes Orientated to Person - Impulse Control Impulse Control: Poor - Insight and Judgement Insight and Judgement: Impaired - Group Participation Particating in Group Activities: No - Medication Management Medication Management Adherence: No Assessment - Assessment Merits Inpatient Hospitalization: For Immediate Safety, For Stabilization Inpatient DSM-IV Dx: MDD, recurrent, severe with psychotic features Clinical Impression: Patient is a 67 y.o. , white female with a history of recurrent psychotic depression brought in by her son to the ED after being discovered unresponsive, psychotic and unable to meet her own basic needs in her home. On exam she is catatonic. She is similarly observed on our unit to not to be caring for her own ADLs, specifically eating, drinking or taking prescribed medications. Plan - Plan Treatment Plan: Name: KEMI MEDRANO Birthdate: 1950 [id number] The patient has been placed back on fluoxetine 10mg PO qday and olanzapine 10mg PO qhs, however, she is non-adherent with these and also not eating/drinking appropriately. We will increase lorazepam to 2mg IM q6h for catatonia and initiate T.O.O. proceedings and place on a 2PC legal status. Continue to treat on inpatient unit. Continued Medication Management: Start Medication Medications: Current Medications Acetaminophen (Tylenol Tab*) 650 mg PO Q4H PRN PRN Reason: PAIN or TEMP > 101 F Al Hydrox/Mg Hydrox/Simethicone (Maalox Plus*) 30 ml PO Q4H PRN PRN Reason: INDIGESTION Fluoxetine HCl (Prozac Cap*) 10 mg PO DAILY [facility] Last Admin: 07/13/17 10:16 Dose: Not Given Lorazepam (Ativan Inj*) 2 mg IM Q6H PRN PRN Reason: catatonia Multivitamins (Theragran Tab*) 1 tab PO DAILY [facility] Last Admin: 07/13/17 10:16 Dose: Not Given Olanzapine (Zyprexa Tab*) 10 mg PO BEDTIME [facility] Last Admin: 07/12/17 21:38 Dose: 10 mg - Discharge Plan Discharge Plan: Inpatient Hospitalization
[2017-07-13] MEDS: OLANzapine TAB* 10 MG PO SCH (21:35)
[2017-07-14] MEDS: Vitamin THERAPEUTIC TAB PO SCH (08:37)
[2017-07-14] MEDS: FLUoxetine CAP* 10 MG PO SCH (08:37)
[2017-07-14] MEDS: OLANzapine TAB* 10 MG PO SCH ×2 (21:10→21:22)
[2017-07-14] MEDS: LORazepam INJ* 2 MG/ML 1 ML VIAL IM PRN (21:17)
[2017-07-15] MEDS: LORazepam INJ* 2 MG/ML 1 ML VIAL IM PRN ×2 (09:31→21:33)
[2017-07-15] MEDS: FLUoxetine CAP* 10 MG PO SCH (13:05)
[2017-07-15] MEDS: Vitamin THERAPEUTIC TAB PO SCH (13:05)
[2017-07-15] MEDS: OLANzapine TAB* 10 MG PO SCH ×2 (21:34→21:35)
[2017-07-16] MEDS: FLUoxetine CAP* 10 MG PO SCH (08:41)
[2017-07-16] MEDS: Vitamin THERAPEUTIC TAB PO SCH (08:41)
--- NOTE | 2017-07-16 14:16 | PN ---
Subjective - Subjective Service Type: 91633 Hosp care 15 min low complexity Subjective: The patient remains withdrawn, depressed and catatonic. She is minimally responsive during my visit and stares blankly at the ceiling. She accepted breakfast and her AM meds this morning, but was largely non-adherent with these over the weekend. Objective - Appearance Appearance: Thin Framed Dysmorphic Features: No Hygiene: Normal Grooming: Fairly Well Kept - Behavior Psychomotor Activities: Abnormal-Decreased Exhibits Abnormal Movement: No - Attitude and Relatedness Attitude and Relatedness: Withdrawn Eye Contact: Poor - Speech Quality: Unpressured Latencies: Long Quantity: Terse - Mood Patient's Decription of Mood: "Sad" - Affect Observed Affect: Unvariable Affect Consistent with: Dysphoria - Thought Process Patient's Thought Process: Impoverished Thought Content: Yes Paranoid Ideation, No Passive Wish, No Suicidal Planning, No Homicidal Ideation - Sensorium Experiencing Hallucinations: Yes Type of Hallucinations: Visual: No, Auditory: Yes, Command: No - Level of Consciousness Level of Consciousness: Lethargic Orientation: Yes Intact, Yes Orientated to Time, Yes Orientated to Place, Yes Orientated to Person - Impulse Control Impulse Control: Poor - Insight and Judgement Insight and Judgement: Impaired - Group Participation Particating in Group Activities: No - Medication Management Medication Management Adherence: No Assessment - Assessment Merits Inpatient Hospitalization: For Immediate Safety, For Stabilization Inpatient DSM-IV Dx: MDD, recurrent, severe with psychotic features Clinical Impression: Patient is a 67 y.o. , white female with a history of recurrent psychotic depression brought in by her son to the ED after being discovered unresponsive, psychotic and unable to meet her own basic needs in her home. On exam she is catatonic. She is similarly observed on our unit to not to be caring for her own ADLs, specifically eating, drinking or taking prescribed medications. Plan - Plan Treatment Plan: Name: KEMI MEDRANO Birthdate: 1950 [id number] The patient has been placed back on fluoxetine 10mg PO qday and olanzapine 10mg PO qhs, however, she is non-adherent with these and also not eating/drinking appropriately. We are using lorazepam 2mg IM q6h for catatonia and are initiating T.O.O. proceedings. Continue to treat on inpatient unit. Continued Medication Management: Continue Outpt Medication Medications: Current Medications Acetaminophen (Tylenol Tab*) 650 mg PO Q4H PRN PRN Reason: PAIN or TEMP > 101 F Al Hydrox/Mg Hydrox/Simethicone (Maalox Plus*) 30 ml PO Q4H PRN PRN Reason: INDIGESTION Fluoxetine HCl (Prozac Cap*) 10 mg PO DAILY [facility] Last Admin: 07/16/17 08:41 Dose: 10 mg Lorazepam (Ativan Inj*) 2 mg IM Q6H PRN PRN Reason: catatonia Last Admin: 07/15/17 21:33 Dose: 2 mg Multivitamins (Theragran Tab*) 1 tab PO DAILY [facility] Last Admin: 07/16/17 08:41 Dose: 1 tab Olanzapine (Zyprexa Tab*) 10 mg PO BEDTIME [facility] Last Admin: 07/15/17 21:35 Dose: Not Given - Discharge Plan Discharge Plan: Inpatient Hospitalization
[2017-07-16] MEDS: LORazepam INJ* 2 MG/ML 1 ML VIAL IM PRN (20:51)
[2017-07-16] MEDS: OLANzapine TAB* 10 MG PO SCH (21:00)
[2017-07-17] MEDS: Vitamin THERAPEUTIC TAB PO SCH (08:39)
[2017-07-17] MEDS: FLUoxetine CAP* 10 MG PO SCH (08:39)
--- NOTE | 2017-07-17 13:48 | PN ---
Subjective - Subjective Service Type: [id number] Hosp care 15 min low complexity Subjective: Susan did get out of bed this morning, has eaten breakfast and lunch and participated minimally in unit activities. She took her fluoxetine this AM but has missed several nights in a row of qhs olanzapine. On exam she makes no eye contact and responses to questions are minimal. She has no insight into her condition. Objective - Appearance Appearance: Thin Framed Dysmorphic Features: No Hygiene: Normal Grooming: Fairly Well Kept - Behavior Psychomotor Activities: Abnormal-Decreased Exhibits Abnormal Movement: No - Attitude and Relatedness Attitude and Relatedness: Withdrawn Eye Contact: Poor - Speech Quality: Unpressured Latencies: Long Quantity: Terse - Mood Patient's Decription of Mood: "Fine" - Affect Observed Affect: Constricted Affect Consistent with: Dysphoria - Thought Process Patient's Thought Process: Impoverished Thought Content: Yes Paranoid Ideation, No Passive Wish, No Suicidal Planning, No Homicidal Ideation - Sensorium Experiencing Hallucinations: No, Sensorium is Clear Type of Hallucinations: Visual: No, Auditory: No, Command: No - Level of Consciousness Level of Consciousness: Alert Orientation: Yes Intact, Yes Orientated to Time, Yes Orientated to Place, Yes Orientated to Person - Impulse Control Impulse Control: Poor - Insight and Judgement Insight and Judgement: Impaired - Group Participation Particating in Group Activities: No - Medication Management Medication Management Adherence: Partial Assessment - Assessment Merits Inpatient Hospitalization: For Immediate Safety, For Stabilization Inpatient DSM-IV Dx: MDD, recurrent, severe with psychotic features Clinical Impression: Patient is a 67 y.o. , white female with a history of recurrent psychotic depression brought in by her son to the ED after being discovered unresponsive, psychotic and unable to meet her own basic needs in her home. On exam she is catatonic. She is similarly observed on our unit to not to be caring for her own ADLs, specifically eating, drinking or taking prescribed medications. Plan - Plan Treatment Plan: Name: SUSAN MEDRANO Birthdate: 1950 [id number] The patient has been placed back on fluoxetine 10mg PO qday and olanzapine 10mg PO qhs, however, she is non-adherent with these and also not eating/drinking appropriately. We are using lorazepam 2mg IM q6h for catatonia and are initiating T.O.O. proceedings. Continue to treat on inpatient unit. Continued Medication Management: Start Medication Medications: Current Medications Acetaminophen (Tylenol Tab*) 650 mg PO Q4H PRN PRN Reason: PAIN or TEMP > 101 F Al Hydrox/Mg Hydrox/Simethicone (Maalox Plus*) 30 ml PO Q4H PRN PRN Reason: INDIGESTION Fluoxetine HCl (Prozac Cap*) 10 mg PO DAILY [facility] Last Admin: 07/17/17 08:39 Dose: 10 mg Lorazepam (Ativan Inj*) 2 mg IM Q6H PRN PRN Reason: catatonia Last Admin: 07/16/17 20:51 Dose: 2 mg Multivitamins (Theragran Tab*) 1 tab PO DAILY [facility] Last Admin: 07/17/17 08:39 Dose: Not Given Olanzapine (Zyprexa Tab*) 10 mg PO BEDTIME [facility] Last Admin: 07/16/17 21:00 Dose: Not Given - Discharge Plan Discharge Plan: Inpatient Hospitalization
[2017-07-17] MEDS: OLANzapine TAB* 10 MG PO SCH (21:32)
[2017-07-18] MEDS: Vitamin THERAPEUTIC TAB PO SCH (08:29)
[2017-07-18] MEDS: FLUoxetine CAP* 10 MG PO SCH (08:29)
--- NOTE | 2017-07-18 11:41 | PN ---
MHU: Group Therapy Note - Service Type Service Type: [id number] Group Psychotherapy - Cognitive Behavioral Group Therapy ( CBT):Patient attended CBT programming this morning and presented with flat affect that did not vary with discussion. Although responsive to direct prompts to respond to questions, patient did not engage in spontaneous conversation.
--- NOTE | 2017-07-18 13:51 | PN ---
Subjective - Subjective Service Type: [id number] Hosp care 15 min low complexity Subjective: The patient is up out of her room and ate breakfast and lunch. She has taken her morning prozac the last couple days but has been consistently unable/ unwilling to take olanzapine at night. Today she makes eye contact and gives very brief, uninformative responses to my questions, such as "I ate great" and "I need to be here about a week" but does not appear to have any insight about why she was admitted here. Objective - Appearance Appearance: Thin Framed Dysmorphic Features: No Hygiene: Normal Grooming: Fairly Well Kept - Behavior Psychomotor Activities: Abnormal-Decreased Exhibits Abnormal Movement: No - Attitude and Relatedness Attitude and Relatedness: Withdrawn Eye Contact: Poor - Speech Quality: Unpressured Latencies: Long Quantity: Terse - Mood Patient's Decription of Mood: "Okay" - Affect Observed Affect: Unvariable Affect Consistent with: Dysphoria - Thought Process Patient's Thought Process: Impoverished Thought Content: Yes Paranoid Ideation, No Passive Wish, No Suicidal Planning, No Homicidal Ideation - Sensorium Experiencing Hallucinations: Yes Type of Hallucinations: Visual: No, Auditory: Yes, Command: No - Level of Consciousness Level of Consciousness: Alert Orientation: Yes Intact, Yes Orientated to Time, Yes Orientated to Place, Yes Orientated to Person - Impulse Control Impulse Control: Poor - Insight and Judgement Insight and Judgement: Impaired - Group Participation Particating in Group Activities: No - Medication Management Medication Management Adherence: Partial Assessment - Assessment Merits Inpatient Hospitalization: For Immediate Safety, For Stabilization Inpatient DSM-IV Dx: MDD, recurrent, severe with psychotic features Clinical Impression: Patient is a 67 y.o. , white female with a history of recurrent psychotic depression brought in by her son to the ED after being discovered unresponsive, psychotic and unable to meet her own basic needs in her home. On exam she is catatonic. She is similarly observed on our unit to not to be caring for her own ADLs, specifically eating, drinking or taking prescribed medications. Plan - Plan Treatment Plan: Name: KEMI MEDRANO Birthdate: 1950 [id number] The patient has been placed back on fluoxetine 10mg PO qday and olanzapine 10mg PO qhs, however, she is non-adherent with these and also not eating/drinking appropriately. We are using lorazepam 2mg IM q6h for catatonia and are initiating T.O.O. proceedings. Will change olanzapine to 5mg PO BID to improve adherence. Continue to treat on inpatient unit. Continued Medication Management: Start Medication Medications: Current Medications Acetaminophen (Tylenol Tab*) 650 mg PO Q4H PRN PRN Reason: PAIN or TEMP > 101 F Al Hydrox/Mg Hydrox/Simethicone (Maalox Plus*) 30 ml PO Q4H PRN PRN Reason: INDIGESTION Fluoxetine HCl (Prozac Cap*) 10 mg PO DAILY [facility] Last Admin: 07/18/17 08:29 Dose: 10 mg Lorazepam (Ativan Inj*) 2 mg IM Q6H PRN PRN Reason: catatonia Last Admin: 07/16/17 20:51 Dose: 2 mg Multivitamins (Theragran Tab*) 1 tab PO DAILY [facility] Last Admin: 07/18/17 08:29 Dose: Not Given Olanzapine (Zyprexa Tab*) 10 mg PO BEDTIME [facility] Last Admin: 07/17/17 21:32 Dose: Not Given - Discharge Plan Discharge Plan: Inpatient Hospitalization
[2017-07-18] MEDS: OLANzapine TAB* 5 MG PO SCH (21:07)
[2017-07-19] MEDS: FLUoxetine CAP* 10 MG PO SCH (08:59)
[2017-07-19] MEDS: OLANzapine TAB* 5 MG PO SCH ×2 (08:59→21:07)
--- NOTE | 2017-07-19 12:13 | PN ---
Subjective - Subjective Service Type: 78542 Hosp care 15 min low complexity Subjective: Susan woke up appropriately this AM, took her meds, ate breakfast and went to group, however, she did not participate much and has since gone back to her room , where I find her unresponsive and unwilling/unable to be interviewed. She continues to do better in the mornings than later in the day and will not take meds or food at night. Objective - Appearance Appearance: Thin Framed Dysmorphic Features: No Hygiene: Normal Grooming: Fairly Well Kept - Behavior Psychomotor Activities: Abnormal-Decreased Exhibits Abnormal Movement: No - Attitude and Relatedness Attitude and Relatedness: Withdrawn Eye Contact: Poor - Speech Quality: Unpressured Latencies: Long Quantity: Terse - Mood Patient's Decription of Mood: "Fine" - Affect Observed Affect: Unvariable Affect Consistent with: Dysphoria - Thought Process Patient's Thought Process: Impoverished Thought Content: Yes Paranoid Ideation, No Passive Wish, No Suicidal Planning, No Homicidal Ideation - Sensorium Experiencing Hallucinations: No, Sensorium is Clear Type of Hallucinations: Visual: No, Auditory: Yes, Command: No - Level of Consciousness Level of Consciousness: Lethargic Orientation: Yes Intact, Yes Orientated to Time, Yes Orientated to Place, Yes Orientated to Person - Impulse Control Impulse Control: Poor - Insight and Judgement Insight and Judgement: Impaired - Group Participation Particating in Group Activities: No - Medication Management Medication Management Adherence: Partial Assessment - Assessment Merits Inpatient Hospitalization: For Immediate Safety, For Stabilization Inpatient DSM-IV Dx: MDD, recurrent, severe with psychotic features Clinical Impression: Patient is a 67 y.o. , white female with a history of recurrent psychotic depression brought in by her son to the ED after being discovered unresponsive, psychotic and unable to meet her own basic needs in her home. On exam she is catatonic. She is similarly observed on our unit to not to be caring for her own ADLs, specifically eating, drinking or taking prescribed medications. Plan - Plan Treatment Plan: Name: SUSAN MEDRANO Birthdate: 1950 [id number] The patient has been placed back on fluoxetine 10mg PO qday and olanzapine 5mg PO BID, however, she is non-adherent with these and also not eating/drinking appropriately. We are using lorazepam 2mg IM q6h for catatonia and are initiating T.O.O. proceedings. Continue to treat on inpatient unit. Continued Medication Management: Continue Outpt Medication Medications: Current Medications Acetaminophen (Tylenol Tab*) 650 mg PO Q4H PRN PRN Reason: PAIN or TEMP > 101 F Al Hydrox/Mg Hydrox/Simethicone (Maalox Plus*) 30 ml PO Q4H PRN PRN Reason: INDIGESTION Fluoxetine HCl (Prozac Cap*) 10 mg PO DAILY [facility] Last Admin: 07/19/17 08:59 Dose: 10 mg Lorazepam (Ativan Inj*) 2 mg IM Q6H PRN PRN Reason: catatonia Last Admin: 07/16/17 20:51 Dose: 2 mg Olanzapine (Zyprexa Tab*) 5 mg PO BID [facility] Last Admin: 07/19/17 08:59 Dose: 5 mg - Discharge Plan Discharge Plan: Inpatient Hospitalization
[2017-07-20] MEDS: OLANzapine TAB* 5 MG PO SCH ×2 (09:55→22:18)
[2017-07-20] MEDS: FLUoxetine CAP* 10 MG PO SCH (09:55)
[2017-07-20] MEDS: LORazepam INJ* 2 MG/ML 1 ML VIAL IM PRN (10:15)
[2017-07-21] MEDS: FLUoxetine CAP* 10 MG PO SCH (10:19)
[2017-07-21] MEDS: OLANzapine TAB* 5 MG PO SCH ×2 (10:20→23:04)
[2017-07-22] MEDS: OLANzapine TAB* 5 MG PO SCH ×2 (09:43→20:27)
[2017-07-22] MEDS: FLUoxetine CAP* 10 MG PO SCH ×2 (09:43→17:31)
[2017-07-22] MEDS ORDERED: FLUoxetine CAP* 10 MG ONE (17:30)
[2017-07-23] MEDS: FLUoxetine CAP* 10 MG PO SCH (08:25)
[2017-07-23] MEDS: OLANzapine TAB* 5 MG PO SCH ×2 (08:25→22:03)
--- NOTE | 2017-07-23 11:42 | PN ---
MHU: Group Therapy Note - Service Type Service Type: [id number] Group Psychotherapy - Cognitive Behavioral Group Therapy ( CBT):Patient attended CBT programming this morning and presented with flat affect that did not vary with discussion. Although responsive to direct prompts to respond to questions, patient did not engage in spontaneous conversation.
--- NOTE | 2017-07-23 15:09 | PN ---
Subjective - Subjective Service Type: 87503 Hosp care 15 min low complexity Subjective: The patient is selective with meds and meals. Ate breakfast and took her medication this AM but skipped yesterday. Very limited interactions with peers and staff. Will only say "I'm fine" to this observer. Denies SI or HI. Objective - Appearance Appearance: Thin Framed Dysmorphic Features: No Hygiene: Normal Grooming: Well Kept - Behavior Psychomotor Activities: Abnormal-Decreased Exhibits Abnormal Movement: No - Attitude and Relatedness Attitude and Relatedness: Withdrawn Eye Contact: Poor - Speech Quality: Unpressured Latencies: Long Quantity: Terse - Mood Patient's Decription of Mood: "Fine" - Affect Observed Affect: Unvariable Affect Consistent with: Dysphoria - Thought Process Patient's Thought Process: Impoverished Thought Content: Yes Paranoid Ideation, No Passive Wish, No Suicidal Planning, No Homicidal Ideation - Sensorium Experiencing Hallucinations: Yes Type of Hallucinations: Visual: No, Auditory: Yes, Command: No - Level of Consciousness Level of Consciousness: Alert Orientation: Yes Intact, Yes Orientated to Time, Yes Orientated to Place, Yes Orientated to Person - Impulse Control Impulse Control: Poor - Insight and Judgement Insight and Judgement: Impaired - Group Participation Particating in Group Activities: No - Medication Management Medication Management Adherence: Partial Assessment - Assessment Merits Inpatient Hospitalization: For Immediate Safety, For Stabilization Inpatient DSM-IV Dx: MDD, recurrent, severe with psychotic features Clinical Impression: Patient is a 67 y.o. , white female with a history of recurrent psychotic depression brought in by her son to the ED after being discovered unresponsive, psychotic and unable to meet her own basic needs in her home. On exam she is catatonic. She is similarly observed on our unit to not to be caring for her own ADLs, specifically eating, drinking or taking prescribed medications. Plan - Plan Treatment Plan: Name: KEMI MEDRANO Birthdate: 1950 [id number] The patient has been placed back on fluoxetine 10mg PO qday and olanzapine 5mg PO BID, however, she is non-adherent with these and also not eating/drinking appropriately. We are using lorazepam 2mg IM q6h for catatonia and await court tomorrow at 14:00 for T.O.O. Continue to treat on inpatient unit. Continued Medication Management: Continue Outpt Medication Medications: Current Medications Acetaminophen (Tylenol Tab*) 650 mg PO Q4H PRN PRN Reason: PAIN or TEMP > 101 F Al Hydrox/Mg Hydrox/Simethicone (Maalox Plus*) 30 ml PO Q4H PRN PRN Reason: INDIGESTION Fluoxetine HCl (Prozac Cap*) 10 mg PO DAILY [facility] Last Admin: 07/23/17 08:25 Dose: 10 mg Lorazepam (Ativan Inj*) 2 mg IM Q6H PRN PRN Reason: catatonia Last Admin: 07/20/17 10:15 Dose: 2 mg Olanzapine (Zyprexa Tab*) 5 mg PO BID [facility] Last Admin: 07/23/17 08:25 Dose: 5 mg - Discharge Plan Discharge Plan: Inpatient Hospitalization
[2017-07-24] MEDS: FLUoxetine CAP* 10 MG PO SCH (08:27)
[2017-07-24] MEDS: OLANzapine TAB* 5 MG PO SCH (08:28)
--- NOTE | 2017-07-24 11:36 | PN ---
MHU: Group Therapy Note - Service Type Service Type: [id number] Group Psychotherapy - Cognitive Behavioral Group Therapy ( CBT):Patient attended CBT programming this morning and presented with flat affect that did not vary with discussion. Although responsive to direct prompts to respond to questions, patient did not engage in spontaneous conversation.
[2017-07-24] MEDS ORDERED: Ziprasidone IM INJ* 20 MG/ML VIAL IM PRN (17:42)
--- NOTE | 2017-07-24 17:48 | PN ---
Subjective - Subjective Service Type: [id number] Hosp care 15 min low complexity Subjective: Patient taken to court for treatment over her objection. T.O.O. request granted by court. Patient withdrawn with little to no insight. Believes she only needs lorazepam. Objective - Appearance Appearance: Thin Framed Dysmorphic Features: No Hygiene: Normal Grooming: Fairly Well Kept - Behavior Psychomotor Activities: Abnormal-Decreased Exhibits Abnormal Movement: No - Attitude and Relatedness Attitude and Relatedness: Withdrawn Eye Contact: Poor - Speech Quality: Unpressured Latencies: Long Quantity: Terse - Mood Patient's Decription of Mood: "Fine" - Affect Observed Affect: Unvariable Affect Consistent with: Dysphoria - Thought Process Patient's Thought Process: Impoverished Thought Content: Yes Paranoid Ideation, No Passive Wish, No Suicidal Planning, No Homicidal Ideation - Sensorium Experiencing Hallucinations: Yes Type of Hallucinations: Visual: No, Auditory: Yes, Command: No - Level of Consciousness Level of Consciousness: Lethargic Orientation: Yes Intact, Yes Orientated to Time, Yes Orientated to Place, Yes Orientated to Person - Impulse Control Impulse Control: Poor - Insight and Judgement Insight and Judgement: Impaired - Group Participation Particating in Group Activities: No - Medication Management Medication Management Adherence: Partial Assessment - Assessment Merits Inpatient Hospitalization: For Immediate Safety, For Stabilization Inpatient DSM-IV Dx: MDD, recurrent, severe with psychotic features Clinical Impression: Patient is a 67 y.o. , white female with a history of recurrent psychotic depression brought in by her son to the ED after being discovered unresponsive, psychotic and unable to meet her own basic needs in her home. On exam she is catatonic. She is similarly observed on our unit to not to be caring for her own ADLs, specifically eating, drinking or taking prescribed medications. Plan - Plan Treatment Plan: Name: KEMI MEDRANO Birthdate: 1950 [id number] As per telephone worker's order, we will discontinue olanzapine and start paliperidone 6mg PO qday. Plan is to switch to injectable Sustenna formulation if well- tolerated. We will increase fluoxetine from 10 to 20mg PO qday. We are using lorazepam 2mg IM q6h prn for catatonia. Continue to treat on inpatient unit. Continued Medication Management: Start Medication Medications: Current Medications Acetaminophen (Tylenol Tab*) 650 mg PO Q4H PRN PRN Reason: PAIN or TEMP > 101 F Al Hydrox/Mg Hydrox/Simethicone (Maalox Plus*) 30 ml PO Q4H PRN PRN Reason: INDIGESTION Fluoxetine HCl (Prozac Cap*) 10 mg PO DAILY [facility] Last Admin: 07/24/17 08:27 Dose: 10 mg Lorazepam (Ativan Inj*) 2 mg IM Q6H PRN PRN Reason: catatonia Last Admin: 07/20/17 10:15 Dose: 2 mg Olanzapine (Zyprexa Tab*) 5 mg PO BID [facility] Last Admin: 07/24/17 08:28 Dose: 5 mg - Discharge Plan Discharge Plan: Inpatient Hospitalization
[2017-07-25] MEDS: Paliperidone TAB* 6 MG PO SCH (09:40)
[2017-07-25] MEDS: FLUoxetine CAP* 10 MG PO SCH (09:40)
--- NOTE | 2017-07-25 14:54 | PN ---
Subjective - Subjective Service Type: [id number] Hosp care 15 min low complexity Subjective: Susan remains withdrawn and minimally cooperative. She did accept court- ordered medications this morning and appears to be eating well. Objective - Appearance Appearance: Thin Framed Dysmorphic Features: No Hygiene: Normal Grooming: Fairly Well Kept - Behavior Psychomotor Activities: Abnormal-Decreased Exhibits Abnormal Movement: No - Attitude and Relatedness Attitude and Relatedness: Withdrawn Eye Contact: Poor - Speech Quality: Unpressured Latencies: Long Quantity: Terse - Mood Patient's Decription of Mood: "Fine" - Affect Observed Affect: Unvariable Affect Consistent with: Euthymia - Thought Process Patient's Thought Process: Impoverished Thought Content: Yes Paranoid Ideation, No Passive Wish, No Suicidal Planning, No Homicidal Ideation - Sensorium Experiencing Hallucinations: No, Sensorium is Clear Type of Hallucinations: Visual: No, Auditory: No, Command: No - Level of Consciousness Level of Consciousness: Alert Orientation: Yes Intact, Yes Orientated to Time, Yes Orientated to Place, Yes Orientated to Person - Impulse Control Impulse Control: Tenuous - Insight and Judgement Insight and Judgement: Fair - Group Participation Particating in Group Activities: Yes - Medication Management Medication Management Adherence: Yes Assessment - Assessment Merits Inpatient Hospitalization: For Immediate Safety, For Stabilization Inpatient DSM-IV Dx: MDD, recurrent, severe with psychotic features Clinical Impression: Patient is a 67 y.o. , white female with a history of recurrent psychotic depression brought in by her son to the ED after being discovered unresponsive, psychotic and unable to meet her own basic needs in her home. On exam she is catatonic. She is similarly observed on our unit to not to be caring for her own ADLs, specifically eating, drinking or taking prescribed medications. Plan - Plan Treatment Plan: Name: SUSAN MEDRANO Birthdate: 1950 [id number] As per color maker dyer's order, patient now on paliperidone 6mg PO qday. Plan is to switch to injectable Sustenna formulation if well-tolerated. Also on fluoxetine 20mg PO qday. We are using lorazepam 2mg IM q6h prn for catatonia. Continue to treat on inpatient unit. Continued Medication Management: Start Medication Medications: Current Medications Acetaminophen (Tylenol Tab*) 650 mg PO Q4H PRN PRN Reason: PAIN or TEMP > 101 F Al Hydrox/Mg Hydrox/Simethicone (Maalox Plus*) 30 ml PO Q4H PRN PRN Reason: INDIGESTION Fluoxetine HCl (Prozac Cap*) 20 mg PO DAILY [facility] Last Admin: 07/25/17 09:40 Dose: 20 mg Lorazepam (Ativan Inj*) 2 mg IM Q6H PRN PRN Reason: catatonia Last Admin: 07/20/17 10:15 Dose: 2 mg Paliperidone (Invega Tab*) 6 mg PO DAILY [facility] Last Admin: 07/25/17 09:40 Dose: 6 mg Ziprasidone (Geodon Im Inj*) 10 mg IM DAILY PRN PRN Reason: Refusal of oral antipsychotic - Discharge Plan Discharge Plan: Inpatient Hospitalization
[2017-07-26] MEDS: FLUoxetine CAP* 10 MG PO SCH (09:02)
[2017-07-26] MEDS: Paliperidone TAB* 6 MG PO SCH (09:03)
--- NOTE | 2017-07-26 13:15 | PN ---
M[facility]: Group Therapy Note - Service Type Service Type: [id number] Group Psychotherapy - Cognitive Behavioral Group Therapy ( CBT):Patient attended CBT programming this morning and presented with flat affect that did not vary with discussion. Although responsive to direct prompts to respond to questions, patient did not engage in spontaneous conversation.
--- NOTE | 2017-07-26 16:39 | PN ---
MHU: Group Therapy Note - Service Type Service Type: [id number] Group Psychotherapy - Medication Education Group: Patient attended group and presented with flat affect that did not vary with discussion. Although responsive to direct prompts to respond to questions, patient did not engage in spontaneous conversation.
[2017-07-27] MEDS: FLUoxetine CAP* 10 MG PO SCH ×2 (09:07→15:31)
[2017-07-27] MEDS: Paliperidone TAB* 6 MG PO SCH ×2 (09:07→14:06)
[2017-07-27] MEDS: LORazepam INJ* 2 MG/ML 1 ML VIAL IM PRN (09:59)
[2017-07-27] MEDS ORDERED: Paliperidone SUSTENNA* 234 MG/1.5 ML IM ONE (12:24)
--- NOTE | 2017-07-27 12:27 | PN ---
Subjective - Subjective Service Type: [id number] Hosp care 15 min low complexity Subjective: Patient is catatonic and unresponsive. Did not get up today for meds or meals. Unable to assess. Objective - Appearance Appearance: Thin Framed Dysmorphic Features: No Hygiene: Normal Grooming: Fairly Well Kept - Behavior Psychomotor Activities: Abnormal-Decreased Exhibits Abnormal Movement: No - Attitude and Relatedness Attitude and Relatedness: Withdrawn Eye Contact: Poor Assessment - Assessment Merits Inpatient Hospitalization: For Immediate Safety, For Stabilization Inpatient DSM-IV Dx: MDD, recurrent, severe with psychotic features Clinical Impression: Patient is a 67 y.o. , white female with a history of recurrent psychotic depression brought in by her son to the ED after being discovered unresponsive, psychotic and unable to meet her own basic needs in her home. On exam she is catatonic. She is similarly observed on our unit to not to be caring for her own ADLs, specifically eating, drinking or taking prescribed medications. Plan - Plan Treatment Plan: Name: KEMI MEDRANO Birthdate: 1950 [id number] As per justice court judge's order, will start injectable paliperidone Sustenna 234mg IM times one, now. Also on fluoxetine 20mg PO qday. We are using lorazepam 2mg IM q6h prn for catatonia. Continue to treat on inpatient unit. Continued Medication Management: Start Medication Medications: Current Medications Acetaminophen (Tylenol Tab*) 650 mg PO Q4H PRN PRN Reason: PAIN or TEMP > 101 F Al Hydrox/Mg Hydrox/Simethicone (Maalox Plus*) 30 ml PO Q4H PRN PRN Reason: INDIGESTION Fluoxetine HCl (Prozac Cap*) 20 mg PO DAILY [facility] Last Admin: 07/26/17 09:02 Dose: 20 mg Lorazepam (Ativan Inj*) 2 mg IM Q6H PRN PRN Reason: catatonia Last Admin: 07/27/17 09:59 Dose: 2 mg - Discharge Plan Discharge Plan: Inpatient Hospitalization
[2017-07-28] MEDS: FLUoxetine CAP* 10 MG PO SCH (08:27)
[2017-07-29] MEDS: FLUoxetine CAP* 10 MG PO SCH (08:30)
[2017-07-30] MEDS: FLUoxetine CAP* 10 MG PO SCH (08:27)
--- NOTE | 2017-07-30 12:01 | PN ---
Subjective - Subjective Service Type: [id number] Hosp care 15 min low complexity Subjective: Susan seems slightly more spontaneous and active, although she is still mostly quiet with this examiner. She is eating meals, taking meds and attending groups. She appears to be tolerating her paliperidone Sustenna loading dose well. She denies SI or HI. Objective - Appearance Appearance: Thin Framed Dysmorphic Features: No Hygiene: Normal Grooming: Fairly Well Kept - Behavior Psychomotor Activities: Abnormal-Decreased Exhibits Abnormal Movement: No - Attitude and Relatedness Attitude and Relatedness: Withdrawn Eye Contact: Fair - Speech Quality: Unpressured Latencies: Normal Quantity: Terse - Mood Patient's Decription of Mood: "Okay" - Affect Observed Affect: Unvariable Affect Consistent with: Euthymia - Thought Process Patient's Thought Process: Impoverished Thought Content: No Passive Wish, No Suicidal Planning, No Homicidal Ideation, No Paranoid Ideation - Sensorium Experiencing Hallucinations: No, Sensorium is Clear Type of Hallucinations: Visual: No, Auditory: No, Command: No - Level of Consciousness Level of Consciousness: Alert Orientation: Yes Intact, Yes Orientated to Time, Yes Orientated to Place, Yes Orientated to Person - Impulse Control Impulse Control: Tenuous - Insight and Judgement Insight and Judgement: Fair - Group Participation Particating in Group Activities: Yes - Medication Management Medication Management Adherence: Yes Assessment - Assessment Merits Inpatient Hospitalization: For Immediate Safety, For Stabilization Inpatient DSM-IV Dx: MDD, recurrent, severe with psychotic features Clinical Impression: Patient is a 67 y.o. , white female with a history of recurrent psychotic depression brought in by her son to the ED after being discovered unresponsive, psychotic and unable to meet her own basic needs in her home. On exam she is catatonic. She is similarly observed on our unit to not to be caring for her own ADLs, specifically eating, drinking or taking prescribed medications. Plan - Plan Treatment Plan: Name: SUSAN MEDRANO Birthdate: 1950 [id number] As per motor vehicle assembly supervisor's order, we have started injectable paliperidone Sustenna 234mg IM times one, now. Will give booster dose of 156mg tomorrow AM. Also on fluoxetine 20mg PO qday. Continue to treat on inpatient unit. Continued Medication Management: Start Medication Medications: Current Medications Acetaminophen (Tylenol Tab*) 650 mg PO Q4H PRN PRN Reason: PAIN or TEMP > 101 F Al Hydrox/Mg Hydrox/Simethicone (Maalox Plus*) 30 ml PO Q4H PRN PRN Reason: INDIGESTION Fluoxetine HCl (Prozac Cap*) 20 mg PO DAILY [facility] Last Admin: 07/30/17 08:27 Dose: 20 mg Lorazepam (Ativan Inj*) 2 mg IM Q6H PRN PRN Reason: catatonia Last Admin: 07/27/17 09:59 Dose: 2 mg - Discharge Plan Discharge Plan: Inpatient Hospitalization
--- NOTE | 2017-07-30 12:54 | PN ---
M[facility]: Group Therapy Note - Service Type Service Type: [id number] Group Psychotherapy - Cognitive Behavioral Group Therapy ( CBT):Patient attended CBT programming this morning and presented with flat affect that did not vary with discussion. Although responsive to direct prompts to respond to questions, patient did not engage in spontaneous conversation.
[2017-07-31 08:02] LABS: HDL Cholesterol 73.1 mg/dL
[2017-07-31] MEDS: FLUoxetine CAP* 10 MG PO SCH (08:25)
[2017-07-31] MEDS ORDERED: Paliperidone SUSTENNA* 156 MG/1 ML IM ONE (09:00)
--- NOTE | 2017-07-31 12:51 | PN ---
Subjective - Subjective Service Type: [id number] Hosp care 15 min low complexity Subjective: Susan accepted her booster dose of paliperidone Sustenna 156mg IM this AM and has been calm, interactive and appropriate. She is agreeable with hearing more about ACT team services in the community for after discharge. She's been eating , drinking and bathing appropriately. She denies SI or HI. Objective - Appearance Appearance: Well Developed/Nourished, Thin Framed Dysmorphic Features: No Hygiene: Normal Grooming: Well Kept - Behavior Psychomotor Activities: Normal Exhibits Abnormal Movement: No - Attitude and Relatedness Attitude and Relatedness: Cooperative Eye Contact: Fair - Speech Quality: Unpressured Latencies: Normal Quantity: Terse - Mood Patient's Decription of Mood: "Good" - Affect Observed Affect: Fair Affect Consistent with: Euthymia - Thought Process Patient's Thought Process: Impoverished Thought Content: No Passive Wish, No Suicidal Planning, No Homicidal Ideation, No Paranoid Ideation - Sensorium Experiencing Hallucinations: No, Sensorium is Clear Type of Hallucinations: Visual: No, Auditory: No, Command: No - Level of Consciousness Level of Consciousness: Alert Orientation: Yes Intact, Yes Orientated to Time, Yes Orientated to Place, Yes Orientated to Person - Impulse Control Impulse Control: Tenuous - Insight and Judgement Insight and Judgement: Fair - Group Participation Particating in Group Activities: Yes - Medication Management Medication Management Adherence: Yes Assessment - Assessment Merits Inpatient Hospitalization: Consolidate Improvements, Pending Safe DC Plan Inpatient DSM-IV Dx: MDD, recurrent, severe with psychotic features Clinical Impression: Patient is a 67 y.o. , white female with a history of recurrent psychotic depression brought in by her son to the ED after being discovered unresponsive, psychotic and unable to meet her own basic needs in her home. On exam she is catatonic. She is similarly observed on our unit to not to be caring for her own ADLs, specifically eating, drinking or taking prescribed medications. Plan - Plan Treatment Plan: Name: SUSAN MEDRANO Birthdate: 1950 [id number] As per probate judge's order, we have started injectable paliperidone Sustenna 234mg IM q4wks, with next dose due August 28. Also on fluoxetine 20mg PO qday. We will work on referring her to the ACT team and likely target d/c for , 08/02. Continued Medication Management: Start Medication Medications: Current Medications Acetaminophen (Tylenol Tab*) 650 mg PO Q4H PRN PRN Reason: PAIN or TEMP > 101 F Al Hydrox/Mg Hydrox/Simethicone (Maalox Plus*) 30 ml PO Q4H PRN PRN Reason: INDIGESTION Fluoxetine HCl (Prozac Cap*) 20 mg PO DAILY [facility] Last Admin: 07/31/17 08:25 Dose: 20 mg Lorazepam (Ativan Inj*) 2 mg IM Q6H PRN PRN Reason: catatonia Last Admin: 07/27/17 09:59 Dose: 2 mg - Discharge Plan Discharge Plan: Outpatient Follow Up Outpatient Program: ACT Team Lab Results - Lab Results Lab Results: 07/31/17 07/31/17 07:28 07:28 Hemoglobin A1c 5.7 H Triglycerides 119 Cholesterol 253 LDL Cholesterol 156 HDL Cholesterol 73.1
[2017-08-01] MEDS: FLUoxetine CAP* 10 MG PO SCH (08:18)
--- NOTE | 2017-08-01 14:14 | PN ---
Subjective - Subjective Date of Service: 08/01/17 Service Type: [id number] Hosp care 15 min low complexity Subjective: Susan is more interactive today, going to groups and cooperative with milieu activities. States that she intends to return to the home she owns and resides at in [place]. No problems noted by staff. Objective - Appearance Appearance: Thin Framed Dysmorphic Features: No Hygiene: Normal Grooming: Well Kept - Behavior Psychomotor Activities: Normal Exhibits Abnormal Movement: No - Attitude and Relatedness Attitude and Relatedness: Cooperative Eye Contact: Fair - Speech Quality: Unpressured Latencies: Normal Quantity: Terse - Mood Patient's Decription of Mood: "Okay" - Affect Observed Affect: Fair Affect Consistent with: Euthymia - Thought Process Patient's Thought Process: Coherent Thought Content: No Passive Wish, No Suicidal Planning, No Homicidal Ideation, No Paranoid Ideation - Sensorium Experiencing Hallucinations: Yes Type of Hallucinations: Visual: No, Auditory: No, Command: No - Level of Consciousness Level of Consciousness: Alert Orientation: Yes Intact, Yes Orientated to Time, Yes Orientated to Place, Yes Orientated to Person - Impulse Control Impulse Control: Tenuous - Insight and Judgement Insight and Judgement: Fair - Group Participation Particating in Group Activities: Yes - Medication Management Medication Management Adherence: Yes Assessment - Assessment Merits Inpatient Hospitalization: Consolidate Improvements, Pending Safe DC Plan Inpatient DSM-IV Dx: MDD, recurrent, severe with psychotic features Clinical Impression: Patient is a 67 y.o. , white female with a history of recurrent psychotic depression brought in by her son to the ED after being discovered unresponsive, psychotic and unable to meet her own basic needs in her home. On exam she is catatonic. She is similarly observed on our unit to not to be caring for her own ADLs, specifically eating, drinking or taking prescribed medications. Plan - Plan Treatment Plan: Name: SUSAN MEDRANO Birthdate: 1950 [id number] As per rn diabetes's order, we have started injectable paliperidone Sustenna 234mg IM q4wks, with next dose due August 28. Also on fluoxetine 20mg PO qday. We will work on referring her to the ACT team and likely target d/c for , 08/02. Continued Medication Management: Continue Outpt Medication Medications: Current Medications Acetaminophen (Tylenol Tab*) 650 mg PO Q4H PRN PRN Reason: PAIN or TEMP > 101 F Al Hydrox/Mg Hydrox/Simethicone (Maalox Plus*) 30 ml PO Q4H PRN PRN Reason: INDIGESTION Fluoxetine HCl (Prozac Cap*) 20 mg PO DAILY [facility] Last Admin: 08/01/17 08:18 Dose: 20 mg Lorazepam (Ativan Inj*) 2 mg IM Q6H PRN PRN Reason: catatonia Stop: 08/07/17 09:30 Last Admin: 07/27/17 09:59 Dose: 2 mg - Discharge Plan Discharge Plan: Outpatient Follow Up Outpatient Program: ACT Team Lab Results - Lab Results Lab Results: 07/31/17 07/31/17 07:28 07:28 Hemoglobin A1c 5.7 H Triglycerides 119 Cholesterol 253 LDL Cholesterol 156 HDL Cholesterol 73.1
[2017-08-02 08:12] VITALS: BP 137/75
[2017-08-02] MEDS: FLUoxetine CAP* 10 MG PO SCH (08:28)
--- NOTE | 2017-08-03 00:30 | DS ---
DISCHARGE SUMMARY: DATE OF ADMISSION: 07/09/17 DATE OF DISCHARGE: 08/02/17 DISCHARGE DIAGNOSES: [place] I: Major depressive disorder, recurrent, severe with catatonic features. [place] II: Deferred. [place] III: Hyperlipidemia. [place] IV: Moderate primary support stressors. [place] V: At the time of admission was 30 and at the time of discharge is 60. CONDITION AT THE TIME OF DISCHARGE: Improved. The patient is eating, drinking , bathing, and grooming appropriately. She has been attending groups for several weeks. She is much more spontaneous, much more social. She is able to make good eye contact, answer questions, and she will actually make spontaneous comments. Further-more, she has been taking her medications as prescribed including oral fluoxetine 20 mg daily. It is further notable that she is now on an injectable long-acting antipsychotic next dose of which will be due on 10/14. The patient is requesting discharge. She owns her own home and has a safe place to return to. Furthermore, we have newly referred her to [facility] in order to enhance the amount of outpatient she receives and she is agreeable to this and indicates that she will welcome these providers into her home and trust them with her care. We have coordinated with her son who is agreeable with the discharge plan. The patient has been safe on all checks and attending to her own needs in an appropriate fashion. DISCHARGE INSTRUCTIONS: As follows: A. Medications: 1. She takes fluoxetine 20 mg p.o. daily. 2. She takes Invega Sustenna 234 mg IM once monthly with the next injection due on 08/28/17. B. Diet: Regular. C. Activities: As tolerated. The patient is a nonsmoker. There are no laboratory or diagnostic studies pending at the time of discharge. D. Followup care: The patient is being referred to [facility]. They will provide psychosocial services as well as psychiatric treatment within the community including at the patient's home here in [place]. She has also been granted followup with her outpatient primary care provider, nurse practitioner named Payton Junior. E. Substance abuse followup is nonapplicable. HOSPITAL COURSE: Part A: Reason for admission: The patient is a 67-year-old white female with a history of psychotic depression and at least 3 prior admissions on the behavioral science unit here at [facility] who is now brought to the emergency room by her son due to reports that she had been lying in bed and not caring for herself or her animals. The patient when he brought her in was unable to confirm when she last ate or drank. She was largely unresponsive. Initially, the patient did not speak or respond to any prompts and did not acknowledge being spoken to. She was observed lying on a stretcher in the same position for extended periods of time with her eyes closed, although intermittently she would open her eyes to snare blankly at the ceiling. Approximately 7 hours after her arrival in the ED, she did spontaneously request to use a restroom where she ambulated with a 1 person assist and afterwards she was provided with a [place] and ice water, which she did consume. Later when she was asked about her reason for being in the ED, she stated "I got an electric shock. " The patient denied having knowledge of how or when she was brought to the ED. She denied suicidal or homicidal ideations or auditory or visual hallucinations. When I met with her, she was cooperative and followed me to the consult room. She was not quite clear how she had gotten there, but did state the same story about picking up an electric cord that was charged while she was standing in a puddle of water, accidentally shocking herself. It was unclear whether this had any basis in reality. What was significant was that she presented with long speech latencies, often would only stare at this provider when asked questions and she has experienced a 9-pound weight loss since her most recent discharge. In addition, there was evidence of ketones in her urine which further suggests that she had not been taking care of her activities of daily living most notably eating and drinking. I was not able to reach her son for collateral information. I did screen her for neurovegetative symptoms of depression, most of which she denied although she later admitted to me that she has been depressed. I asked her about treatment in the outpatient setting and she states that she no longer sees anyone at [facility] because all of her healthcare is now managed by her family practice provider, a nurse named Payton Junior. Part B: Psychiatric treatment rendered: The patient was admitted to the adult behavioral health unit where she was placed on q.15 minute checks for her own safety. She continued to show evidence of not eating and drinking. At times, she was totally unresponsive either staring at the ceiling or the wall not making any commentary or any eye contact. We resumed prior therapy with olanzapine 10 mg and fluoxetine 10 mg daily; however, she was highly sporadic in this, mostly skipping the meds, and also skipping a great number of meals. All of this was documented as well as her recent weight loss and we felt compelled under these circumstances to pursue treatment over her objection. The hospital petitioned the [facility] and was ultimately successful in persuading the intranet support to maryanne us the ability to give her necessary medications against her will. We started with a trial of oral paliperidone which she took for several days and tolerated well. Thereafter, we placed her on the injectable paliperidone Sustenna with the initial loading dose of 234 mg IM administered on , 07/26/17. As she continued to tolerate this, we were able to discontinue the oral paliperidone and on 07/31/17, she was placed on 156 mg of Invega Sustenna, which is the booster dose. Her next dose of this therapy will not be due until 08/28/17. In addition, we increased her fluoxetine from 10 mg to 20 mg daily. Thereafter, she was much more consistent in terms of her participation in groups, attending meals without redirection, and eating and drinking normal amounts. She became much more spontaneous, more interested in her care, and more interactive with treatment staff during both group setting and individual sessions in order to plan for her discharge. We were able to get lab draws and noted that her hemoglobin A1c was slightly elevated at 5.7 whereas her triglycerides were 119, cholesterol was 253, LDL 156, and HDL 73.1. At this time, the patient is appropriately requesting discharge. We hooked her up with [facility] as well as medical followup with nurse practitioner, Payton Junior. At this time, we do not feel that she warrants any continuation of involuntary inpatient treatment. [id number]/[facility] #: [id number] [place]
[2017-08-28] MEDS ORDERED: Paliperidone SUSTENNA* 234 MG/1.5 ML IM ONE (12:58)
== END 2017-08-02 13:44 | disposition home or self-care (01) | DRG 885 ==
LOC: ED 16:22 → BSU 07-09 03:39
PROVIDERS: ADMIT Psychiatry & Neurology Psychiatry; ATTEND Psychiatry & Neurology Psychiatry
PROC: GZHZZZZ Group Psychotherapy (ICD-10-PCS; principal; 2017-07-09)
DX: F33.3 Major depressive disorder, recurrent, severe with psychotic symptoms (principal); F06.1 Catatonic disorder due to known physiological condition; E78.5 Hyperlipidemia, unspecified; F41.9 Anxiety disorder, unspecified; E86.0 Dehydration; Z91.030 Bee allergy status; Z88.8 Allergy status to other drugs, medicaments and biological substances; Z82.49 Family history of ischemic heart disease and other diseases of the circulatory system
CPT/HCPCS: 36415; 70450; 71010; 80053; 80061; 81003; 81015; 82550; 83036; 83605; 83690; 83735; 84484; 85025; 85610; 85730; 90853; 93005; 99222; 99231; 99238; A9270-GY; J2060; J2426

== ENCOUNTER 2021-04-30 14:11 | Inpatient (IN) ==
[2021-04-30] MEDS ORDERED: LORazepam 2 mg VIAL 1 ml IM ONE (14:51)
[2021-04-30] MEDS ORDERED: diPHENhydraMINE IV 50 MG/ML 1 ml VIAL (BENADRYL) IM ONE (14:51)
[2021-04-30] MEDS ORDERED: Haloperidol 5 mg/ml SDV IV/IM 5 MG/ML AMP IM ONE (14:51)
[2021-04-30 16:44] LABS: ABS Basophils 0.1 10^3/ul (0-0.2); ABS Lymphocytes 0.4 10^3/ul (1.0-4.8); ABS Monocytes 0.4 10^3/ul (0-0.8); ABS Neutrophils 5.6 10^3/ul (1.5-7.7); Eosinophil % 0.3 %; Hematocrit 37 % (35-47); Hemoglobin 12.2 g/dL (12.0-16.0); Lymphocyte % 6.8 %; Mean Corpuscular HGB Conc 33 g/dL (31-36); Mean Corpuscular Hemoglobin 28 pg (27-31); Mean Corpuscular Volume 84 fL (80-97); Mean Platelet Volume 8.1 fL (7.4-10.4); Platelet Count 251 10^3/uL (150-450); Red Blood Count 4.37 10^6 /uL (3.70-4.87); Red Cell Distribution Width 14 % (10-15); White Blood Count 6.5 10^3/uL (3.5-10.8)
[2021-04-30 16:57] LABS: ALT 12 U/L (7-52); AST 16 U/L (13-39); Albumin 3.6 g/dL (3.2-5.2); Albumin/Globulin Ratio 1.2 (1-3); Alkaline Phosphatase 63 U/L (35-149); Anion Gap 5 mmol/L (2-11); Blood Urea Nitrogen 12 mg/dL (6-24); CO2 Carbon Dioxide 27 mmol/L (22-32); Calcium 8.8 mg/dL (8.6-10.3); Chloride 99 mmol/L (101-111); EGFR Non-African American 86.8 (>60); Globulin 2.9 g/dL (2-4); Glucose 149 mg/dL (70-100); Potassium 3.7 mmol/L (3.5-5.0); Sodium 131 mmol/L (135-145); Total Protein 6.5 g/dL (6.4-8.9)
[2021-04-30 17:04] LABS: Acetaminophen < 15 mcg/mL; Alcohol, S < 13 mg/dL (<13); Salicylate < 2.50 mg/dL (<30)
[2021-04-30 17:19] LABS: TSH Ultra Thyroid Stim Horm 3.24 mcIU/mL (0.34-5.60)
[2021-04-30 17:43] LABS: Urine Appearance Clear; Urine Bilirubin Negative (Negative); Urine Blood Negative (Negative); Urine Color Straw; Urine Glucose 3+(>=500 mg/dL) (Negative); Urine Ketones Negative (Negative); Urine Nitrite Negative (Negative); Urine Protein Negative (Negative); Urine Specific Gravity 1.003 (1.002-1.030); Urine Urobilinogen Negative (Negative)
[2021-04-30 18:00] LABS: Urine Benzodiazepine Screen None Detected (None Detect); Urine Cannabinoids Screen None Detected (None Detect); Urine Opiates Screen None Detected (None Detect)
[2021-04-30] MEDS ORDERED: Al Hydrox/Mg Hydrox/Simet LIQ 30 ML UDC PO PRN (22:36)
[2021-04-30 22:49] LABS: Rapid COVID-19 Molecular Undetected (Undetected)
[2021-05-01] MEDS: Vitamin THERAPEUTIC TAB PO SCH (11:32)
[2021-05-01] MEDS: OLANzapine 5 mg TAB*ODT PO SCH (21:19)
[2021-05-02] MEDS: Vitamin THERAPEUTIC TAB PO SCH (10:47)
[2021-05-02] MEDS: OLANzapine 5 mg TAB*ODT PO SCH (19:52)
[2021-05-03] MEDS: Vitamin THERAPEUTIC TAB PO SCH (13:36)
[2021-05-04] MEDS: Vitamin THERAPEUTIC TAB PO SCH (09:41)
[2021-05-05] MEDS: Vitamin THERAPEUTIC TAB PO SCH (08:53)
[2021-05-18] MEDS ORDERED: Lorazepam PYXIS KEY PRN (13:44)
[2021-05-18] MEDS ORDERED: LORazepam 2 mg VIAL 1 ml IM PRN (13:44)
[2021-05-18] MEDS ORDERED: Paliperidone SUSTENNA 234 MG/1.5 ML IM ONE (13:44)
[2021-05-19] MEDS ORDERED: Haloperidol 5 mg/ml SDV IV/IM 5 MG/ML AMP IM PRN (10:44)
[2021-05-23] MEDS ORDERED: Paliperidone SUSTENNA 156 MG/1 ML IM ONE (11:05)
[2021-06-19 08:12] VITALS: BP 111/69
[2021-06-20] MEDS ORDERED: Paliperidone SUSTENNA 234 MG/1.5 ML IM ONE (08:00)
== END 2021-06-20 09:05 | DRG 885 ==
LOC: ED 14:11 → BSU 21:53
PROVIDERS: ADMIT Psychiatry & Neurology Psychiatry; ATTEND Psychiatry & Neurology Psychiatry